=== PATIENT | female | born 1995 | race Caucasian/White ===

== ENCOUNTER 2020-10-27 10:12 | Emergency (ER) | payer OTHER, SELFPAY ==
--- NOTE | ~2020-10-27 | XR_ITS ---
EXAMINATION: XR knee LT 3V EXAM DATE: 10/27/2020 10:34 INDICATION: Fall 3 weeks ago 1st toe/left knee pain. Initial encounter. TECHNIQUE: Three projections of the left knee. There is no prior study for comparison. FINDINGS: No evidence osteochondral defect or joint body in the left knee joint. No joint effusion. There are no acute fractures or dislocations identified. There is no subcutaneous gas. The soft ti ssue is unremarkable. There are no radiopaque foreign bodies. IMPRESSION: Unremarkable left knee exam. Reviewed, dictated and finalized at location A. NT ENGINEER
--- NOTE | ~2020-10-27 | XR_ITS ---
EXAMINATION: XR foot LT min 3V EXAM DATE: 10/27/2020 10:34 INDICATION: Fall 3 weeks ago left great toe pain/1st metatarsal. Initial encounter. TECHNIQUE: Left foot dorsoplantar, lateral and oblique projections obtained and reviewed. There is n o prior study for comparison. FINDINGS: Left metatarsal bones unremarkable. There are no acute fractures or dislocations identifi ed. There is no subcutaneous gas. The soft tissue is unremarkable. There are no radiopaque foreig n bodies. IMPRESSION: No acute osseous findings. Reviewed, dictated and finalized at location A. ASTRUCTURE TECH IMPRESSION: No acute osseous findings.
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
[2020-10-27 10:21] VITALS: BP 147/85; PULSE 121; RESP 20; TEMP 36.3; O2SAT 100
== END 2020-10-27 10:59 | disposition home or self-care (01) ==
PROVIDERS: Emergency Provider Nurse Practitioner; PCP Family Medicine
DX: S99.922A Unspecified injury of left foot, initial encounter (principal); W10.9XXA Fall (on) (from) unspecified stairs and steps, initial encounter; M25.562 Pain in left knee
CPT/HCPCS: 73562; 73630; 99214; G0463

== ENCOUNTER → 2022-06-19 10:52 | Outpatient (CLI) | payer OTHER, SELFPAY ==
--- NOTE | ~2022-06-19 | US_ITS ---
EXAMINATION: US OB /maternal detail DATE: 06/19/2022 11:37 INDICATION: Second trimester anatomic survey TECHNIQUE: Real-time ultrasound of the pelvis was performed. COMPARISON: None. FINDINGS: There is a single living fetus in vertex presentation. The placenta is anterior and 8.6 cm from the i nternal cervical os. The cervical length is 3.2 cm. heart rate is 162 beats per minute (bpm). cardiac activity and movement are noted. The amniotic fluid index is subjectively normal. A 5 mm choroid plexus cyst is noted. The following anatomy was identified as normal: 4 chamber heart 3 vessel cord cord insertion kidneys urinary bladder stomach spine diaphragm ventricles cisterna magna cerebellum The following biometric data were obtained: Biparietal diameter (BPD): 4.5 cm; head circumference (HC): 16.4 cm; abdominal circumference (AC): 13 .4 cm; femur length (FL): 2.8 cm. These measurements are concordant. Estimated weight is 252 g +/- 37 g, which correlates with the 22nd percentile when 11/12/2022 is used as estimated date of delivery. As single measurements, these parameters are each equal to the following estimated gestational ages w ith ranges of +/- 2 standard deviations: BPD: 19 weeks 4 days ( 17 weeks 6 days - 21 weeks 3 days). HC: 19 weeks 1 days ( 17 weeks 5 days - 20 weeks 4 days). AC: 18 weeks 5 days ( 16 weeks 5 days - 20 weeks 6 days). FL: 18 weeks 3 days ( 16 weeks 4 days - 20 weeks 2 days). estimated gestational age based solely on measurements from this exam is 19 weeks 0 days +/- 1 weeks 2 days. IMPRESSION: 1. Single living fetus in vertex presentation. 2. Estimated weight is 252 g +/- 37 g, which correlates with the 22nd percentile when 11/12/2022 is used as estimated date of delivery. Reviewed, dictated and finalized at location B. IMPRESSION: 1. Single living fetus in vertex presentation. 2. Estimated weight is 252 g +/- 37 g, which correlates with the 22nd per centile when 11/12/2022 is used as estimated date of delivery.
== END ==
PROVIDERS: PCP Family Medicine; Visit Provider Advanced Practice Midwife
DX: Z34.92 Encounter for supervision of normal pregnancy, unspecified, second trimester (principal); Z3A.19 19 weeks gestation of pregnancy
CPT/HCPCS: 76805

== ENCOUNTER 2022-10-22 08:24 | Outpatient (CLI) | payer BC, SELFPAY ==
[2022-10-22 08:45] VITALS: BP 138/96; PULSE 103
[2022-10-22 09:00] VITALS: BP 141/88; PULSE 88
[2022-10-22 09:02] LABS: Basophils Percent Auto 0.4 % (0.2-1.2); Eosinophils Absolute Auto 0.3 K/mm3 (0-0.3); Eosinophils Percent Auto 3.7 % (0-4.4); Hematocrit 36.3 % (37.0-47.0); Hemoglobin 12.5 g/dL (12.0-15.0); Immature Granulocyte Absolute 0.04 K/mm3 (0.00-0.031); Immature Granulocyte Percent A 0.5 % (0-0.5); Lymphocytes Absolute Auto 2.06 K/mm3 (0.9-3.2); Lymphocytes Percent Auto 24.3 % (18.3-44.2); Mean Corpuscular HGB Conc 34.4 g/dl (32-36); Mean Corpuscular Hemoglobin 31.8 pg (26-34); Mean Corpuscular Volume 92.4 fl (80-100); Mean Platelet Volume 9.7 fl (7.4-10.4); Monocytes Absolute Auto 0.7 K/mm3 (0.1-0.6); Monocytes Percent Auto 8.6 % (2.6-8.5); Neutrophils Absolute Auto 5.3 K/mm3 (1.3-6.7); Neutrophils Percent Auto 62.5 % (45.5-73.1); Platelet Count Result 254 k/mm3 (150-375); Red Blood Count 3.93 M/mm3 (4.2-5.4); Red Cell Distribution Width 13.8 % (11.5-14.5); White Blood Count 8.5 K/mm3 (4.5-10.0)
[2022-10-22 09:15] LABS: Alanine Aminotransferase 40 U/L (6-35); Albumin Level 3.4 g/dL (3.5-5.1); Alkaline Phosphatase 174 U/L (38-126); Anion Gap 8 mmol/L (8-16); Aspartate Amino Transferase 27 U/L (14-36); Bilirubin,Total 0.5 mg/dL (0.2-1.3); Blood Urea Nitrogen 4 mg/dL (7-17); Calcium 8.4 mg/dL (8.4-10.2); Carbon Dioxide 22 mmol/L (22-30); Chloride 107 mmol/L (98-107); Estimated Glomerular Filt Rate > 60; Glucose 87 mg/dL (65-110); Potassium 3.1 mmol/L (3.4-5.0); Sodium 137 mmol/L (137-145); Uric Acid 4.4 mg/dL (2.5-7.5)
[2022-10-22 09:39] VITALS: BP 140/85; PULSE 77
[2022-10-22 09:46] VITALS: BP 137/75; PULSE 77
[2022-10-22 09:46] LABS: Appearance Urine Cloudy (Clear); Bilirubin Urine Negative (Negative); Blood Urine Negative (Negative); Color Urine Yellow (Yellow); Glucose Urine UA Negative (Negative); Ketones Urine 1+ mg/dL (Negative); Leukocyte Esterase Ur 1+ LEU/UL (NEGATIVE); Nitrate Urine Negative (Negative); Protein Urine 2+ mg/dL (Negative); Urobilinogen Urine 0.2 mg/dL (<2.0)
[2022-10-22 09:56] LABS: Bacteria Urine 4+ /hpf; Mucus Urine Rare /lpf; Squamous Epithelial Cell Urine Many /hpf (Few)
[2022-10-22 10:01] VITALS: BP 138/79; PULSE 71
[2022-10-22 10:02] LABS: Creatinine Urine 173.9 mg/dL; Total Protein Urine Random 24 mg/dL; Ur Ttl Prot Creatinine Ratio 0.14 mg/mg (0-0.20)
[2022-10-22 10:07] LABS: Add Urine Microscopic? YES
[2022-10-22 10:16] VITALS: BP 135/81; PULSE 66
== END 2022-10-22 10:25 | disposition home or self-care (01) ==
LOC: ANHOBOP 08:27 → ANHOBPP 08:28
PROVIDERS: PCP Family Medicine; Visit Provider Obstetrics & Gynecology Gynecology
DX: O10.919 Unspecified pre-existing hypertension complicating pregnancy, unspecified trimester (principal); Z3A.00 Weeks of gestation of pregnancy not specified
CPT/HCPCS: 36415; 59025; 80053; 81001; 82570; 84156; 84550; 85025; 87086; 99199

== ENCOUNTER 2022-10-23 09:52 | Outpatient (CLI) | payer BC, SELFPAY ==
[2022-10-23 09:52] VITALS: BMI 36.0
[2022-10-23 10:28] LABS: Collection Time Urine 24 HOURS
[2022-10-23 10:39] LABS: Patient Weight 197 Lbs
[2022-10-23 10:40] LABS: Total Volume 24 Hour Urine 4000 ml
[2022-10-23 10:44] LABS: Total Protein Urine Random 20 mg/dL
[2022-10-23 11:15] LABS: Creatinine Clearance Urine 191.4 ml/min (75-125); Creatinine Urine 37.7 mg/dL
[2022-10-23 11:30] LABS: Specific Gravity Ur 1.015; Total Protein Urine 24 Hr 800 mg/24hr (28-141); Total Volume 24 Hour Urine 4000 ml
== END 2022-10-23 09:53 | disposition home or self-care (01) ==
LOC: ANHOBOP 10:00
PROVIDERS: PCP Family Medicine; Visit Provider Obstetrics & Gynecology Gynecology
DX: O26.899 Other specified pregnancy related conditions, unspecified trimester (principal); R03.0 Elevated blood-pressure reading, without diagnosis of hypertension
CPT/HCPCS: 81050; 82575; 84156

== ENCOUNTER 2022-10-25 15:42 | Inpatient (IN) | payer BC, SELFPAY ==
[2022-10-25] VITALS (18 sets, daily range): BP systolic 130–166; BP diastolic 64–100; PULSE 60–81; RESP 14–16; TEMP 36.4–36.9; BMI 35.9
[2022-10-25] MEDS: DINOPROSTONE 10 MG VAG INSERT VAGINAL (16:22)
[2022-10-25 16:29] LABS: Basophils Percent Auto 0.2 % (0.2-1.2); Eosinophils Absolute Auto 0.2 K/mm3 (0-0.3); Eosinophils Percent Auto 2.8 % (0-4.4); Hematocrit 37.1 % (37.0-47.0); Hemoglobin 12.8 g/dL (12.0-15.0); Immature Granulocyte Absolute 0.03 K/mm3 (0.00-0.031); Immature Granulocyte Percent A 0.4 % (0-0.5); Lymphocytes Absolute Auto 2.14 K/mm3 (0.9-3.2); Lymphocytes Percent Auto 25.2 % (18.3-44.2); Mean Corpuscular HGB Conc 34.5 g/dl (32-36); Mean Corpuscular Hemoglobin 31.4 pg (26-34); Mean Corpuscular Volume 91.2 fl (80-100); Mean Platelet Volume 9.7 fl (7.4-10.4); Monocytes Absolute Auto 0.9 K/mm3 (0.1-0.6); Monocytes Percent Auto 10.5 % (2.6-8.5); Neutrophils Absolute Auto 5.2 K/mm3 (1.3-6.7); Neutrophils Percent Auto 60.9 % (45.5-73.1); Platelet Count Result 264 k/mm3 (150-375); Red Blood Count 4.07 M/mm3 (4.2-5.4); Red Cell Distribution Width 13.7 % (11.5-14.5); White Blood Count 8.5 K/mm3 (4.5-10.0)
--- NOTE | 2022-10-25 16:34 | LDADM ---
This patient, Janeen Pearl, was admitted to Labor/Delivery/Recovery 108 on 10/25/22 at 15:42. Plans for labor, pain management and were discussed with patient. Patient/family oriented to hospital policies and general routines including ID bracelet, bed and alarms, visiting hours, pain management, procedures, bathroom and other care routines, personal items, smoking policy, room service/diet and guest tray routines, security routines, and visiting hours. Patient/Family are encouraged to report perceived risks to care and to ask questions if they do not understand what they are told or what they should do. See OBIX for further documentation.
[2022-10-25 16:38] LABS: Alanine Aminotransferase 23 U/L (6-35); Albumin Level 3.4 g/dL (3.5-5.1); Alkaline Phosphatase 162 U/L (38-126); Anion Gap 7 mmol/L (8-16); Aspartate Amino Transferase 22 U/L (14-36); Bilirubin,Total 0.6 mg/dL (0.2-1.3); Blood Urea Nitrogen 5 mg/dL (7-17); Calcium 8.9 mg/dL (8.4-10.2); Carbon Dioxide 23 mmol/L (22-30); Chloride 107 mmol/L (98-107); Estimated Glomerular Filt Rate > 60; Glucose 80 mg/dL (65-110); Potassium 3.2 mmol/L (3.4-5.0); Sodium 137 mmol/L (137-145); Uric Acid 4.1 mg/dL (2.5-7.5)
[2022-10-25] MEDS: ACETAMINOPHEN 500 MG TABLET 1000 MG PO (21:05)
[2022-10-26] VITALS (190 sets, daily range): BP systolic 88–172; BP diastolic 37–127; PULSE 51–293; RESP 15–18; TEMP 36.8–37.6; O2SAT 95–100
[2022-10-26] MEDS: LACTATED RINGERS 1,000 ML 125 ML IV CONT ×3 (05:35→20:34)
[2022-10-26] MEDS: OXYTOCIN 30 UNITS/NS 500 ML 30 UNITS/500 ML BAG 6 UNITS IV CONT (05:35)
[2022-10-26] MEDS: miSOPROStol 25 MCG TABLET PO (07:07)
--- NOTE | 2022-10-26 09:32 | WPDANESEPP ---
Anes - Eval Pre Procedure Procedure: labor epidural Date/Time: 10/26/22 09:32 Preop Diagnosis: labor pain Pre Op Diagnosis: Induction of Labor Patient Data Age: 26 Gender: F Height: 1.57 m Weight: 89 kg Last Vital Signs Temp 37.2 C 10/26/22 07:00 Pulse 86 10/26/22 09:07 Resp 18 10/26/22 03:49 BP 151/103 H 10/26/22 09:07 O2 Del Method Room Air 10/25/22 16:31 Allergies Allergy/AdvReac Type Severity Reaction Status Date / Time gluten Allergy Gastrointestinal Verified 10/12/22 12:31 Upset grass pollen Allergy Hives Verified 10/12/22 12:32 red meat AdvReac Gastrointestinal Uncoded 10/12/22 12:32 Upset Home Medications Medication Instructions Recorded Confirmed Type aspirin 81 mg tablet,delayed 81 mg PO DAILY 10/12/22 10/12/22 History release (Collette Low Dose Aspirin) cholecalciferol (vitamin D3) 125 125 mcg PO DAILY 10/12/22 10/25/22 History mcg (5,000 unit) tablet (Vitamin D3) prenat.vits,nel,eeg-ydpi-vhvue 1 tablet PO DAILY 10/12/22 10/12/22 History Laboratory Tests 10/25/22 10/25/22 10/25/22 16:14 16:14 16:14 WBC 8.5 K/mm3 K/mm3 (4.5-10.0) RBC 4.07 M/mm3 L M/mm3 (4.2-5.4) Hgb 12.8 g/dL g/dL (12.0-15.0) Hct 37.1 % % (37.0-47.0) MCV 91.2 fl fl (80-100) MCH 31.4 pg pg (26-34) MCHC 34.5 g/dl g/dl (32-36) RDW 13.7 % % (11.5-14.5) Plt Count 264 k/mm3 k/mm3 (150-375) MPV 9.7 fl fl (7.4-10.4) Immature Gran % (Auto) 0.4 % % (0-0.5) Neut % (Auto) 60.9 % % (45.5-73.1) Lymph % (Auto) 25.2 % % (18.3-44.2) [place] % (Auto) 10.5 % H % (2.6-8.5) Eos % (Auto) 2.8 % % (0-4.4) Baso % (Auto) 0.2 % % (0.2-1.2) Lymph # (Auto) 2.14 K/mm3 K/mm3 (0.9-3.2) [place] # (Auto) 0.9 K/mm3 H K/mm3 (0.1-0.6) Eos # (Auto) 0.2 K/mm3 K/mm3 (0-0.3) Baso # (Auto) 0.0 K/mm3 K/mm3 (0.0-0.1) Abs Immat Gran (auto) 0.03 K/mm3 K/mm3 (0.00-0.031) Absolute Neuts (auto) 5.2 K/mm3 K/mm3 (1.3-6.7) Absolute Nucleated RBC 0.0 K/mm3 K/mm3 (0.0-0.012) Nucleated RBC % 0.0 % % (0.0-0.2) Sodium Potassium Chloride Carbon Dioxide Anion Gap BUN Creatinine Estim Creat Clear Calc Estimated GFR Glucose Uric Acid Calcium Total Bilirubin AST ALT Alkaline Phosphatase Total Protein Albumin RPR Pending Blood Type O Positive Antibody Screen Negative 10/25/22 10/25/22 16:14 16:15 WBC RBC Hgb Hct MCV MCH MCHC RDW Plt Count MPV Immature Gran % (Auto) Neut % (Auto) Lymph % (Auto) [place] % (Auto) Eos % (Auto) Baso % (Auto) Lymph # (Auto) [place] # (Auto) Eos # (Auto) Baso # (Auto) Abs Immat Gran (auto) Absolute Neuts (auto) Absolute Nucleated RBC Nucleated RBC % Sodium 137 mmol/L mmol/L (137-145) Potassium 3.2 mmol/L L mmol/L (3.4-5.0) Chloride 107 mmol/L mmol/L (98-107) Carbon Dioxide 23 mmol/L mmol/L (22-30) Anion Gap 7 mmol/L L mmol/L (8-16) BUN 5 mg/dL L mg/dL (7-17) Creatinine 0.60 mg/dL L mg/dL (0.7-1.0) Estim Creat Clear Calc Not Reportable Estimated GFR > 60 (59 - ) Glucose 80 mg/dL mg/dL (65-110) Uric Acid 4.1 mg/dL mg/dL Cancelled (2.5-7.5) Calcium 8.9 mg/dL mg/dL (8.4-10.2) Total Bilirubin 0.6 mg/dL mg/dL (0.2-1.3) AST 22 U/L U/L (14-36)
[2022-10-26] MEDS: NIFEdipine 30 MG TAB.ER.24 PO (11:35)
--- NOTE | 2022-10-26 11:52 | PM.OBPNLAB ---
Pain Control Date/time seen: 10/26/22 11:52 Pain control: tolerating well Pelvic Exam Dilation (cm): 1 Effacement (%): 25 station: -3 Amniotic membrane status: Intact Comments: head palpated and applied to cervix. Contractions Monitor mode: External Contraction pattern: Irregular Assessment and Plan Assessment: induction ongoing Comments: RN spoke with Dr. Morocho about plan of care. MD requests for CNM to attempt ROM. CNM to bedside. Discussed plan of care an option for amniotomy. Discussed risks, benefits, and expectations of breaking water. Patient is agreeable. Amniotomy performed and there was a small return of clear amniotic fluid. Small amount of bloody show present. Patient tolerated procedure well. Dr. Morocho updated on AROM.
[2022-10-26] MEDS: fentaNYL CITRATE INJ (*CRX) 100 MCG/2 ML VIAL 50 MCG IV PUSH (13:38)
[2022-10-26] MEDS: fentaNYL CITRATE INJ (*CRX) 100 MCG/2 ML VIAL IV PUSH ×3 (14:52→17:07)
[2022-10-26] MEDS: SODIUM CHLORIDE 0.9% IV 300 ML 600 ML I-UTERINE (19:30)
--- NOTE | 2022-10-26 23:33 | PM.OBPRVD ---
OB - Delivery Note Procedure Delivery date: 10/26/22 Procedure: Events: Preeclampsia w/o severe features Induction method: AROM, Per Pitocin Protocol and Per Cervidil Protocol Delivery monitor: External FHT and Internal Uterine Route of delivery: Laceration Description: Perineal - 2nd Degree Delivery repair: vicryl (3-0) Specimen: Yes (placenta) Quantitative Blood Loss (ml): 100 Anesthesia type: Epidural Disposition: Floor [place] Baby Date of : 10/26/22 Weeks of gestation at delivery: 37 gender: Male presentation: vertex position: Right Occiput Anterior Placenta delivery description: Spontaneous Cord Vessel Description: 3 Vessels score one minute: 8 score five minutes: 9
--- NOTE | 2022-10-26 23:35 | P.DS_ITS ---
DS: Admitting Diagnosis Discharge Date 10/28/22 Admitting Diagnosis IUP 37 2/7 wks with preeclampsia for [facility] DS: Discharge Diagnosis Discharge Diagnosis (1) Preeclampsia: Code(s): O14.90 - Unspecified pre-eclampsia, unspecified trimester Status: Acute (2) 37 weeks gestation of : Code(s): Z3A.37 - 37 weeks gestation of Status: Acute (3) (normal spontaneous vaginal delivery): Code(s): O80 - Encounter for full-term uncomplicated delivery Status: Acute OB - DS: Summary OB Procedures : NST, PIH Mgmt and Ultrasound OB Procedures Intrapartum: Spontaneous Vag Delivery OB Procedures: : None Peripartum Data Infant Delivery Method: Natural Vaginal Laceration Description: Perineal - 2nd Degree complications: none Status at Discharge Functional status at discharge: independent ambulation Overall status at discharge: patient is progressing back to baseline Time Spent with Patient Time attestation: Total time spent providing and/or coordinating discharge services: DS: Data Data Completed and Pending Pending studies at discharge: Pending at discharge 10/26/22 23:23 Surgical [PTH] Routine Discharge Plan Discharge Attending physician on discharge: Zulma Morocho Discharging Clinician: Zulma Morocho Anticipated Discharge Date/Time: 10/28/22 23:36 Patient Disposition: Home, Self-Care Activity: may shower and pelvic rest Diet: regular Patient Instructions: Antibiotic Form Stand Alone Forms: General Discharge Information Follow-up/Referrals: Zulma Morocho MD [Physician] - 1 Week (and 6 wk) Discharge Medications: New nifedipine [Procardia XL] 30 mg Tablet Extended Release 24hr 30 mg PO Q12HR Qty: 60 0RF Continued cholecalciferol (vitamin D3) [Vitamin D3] 125 mcg (5,000 unit) Tablet 125 mcg PO DAILY Discontinued aspirin [Collette Low Dose Aspirin] 81 mg Tablet,Delayed Release (Dr/Ec) 81 mg PO DAILY #2 Tablet 1 tablet PO DAILY Date of admission: 10/25/22 15:42 Primary Care Provider: Radha,Stefanie Wills Admitting Provider: Zulma Morocho Attending physician on admission: Zulma Morocho Condition: Stable
[2022-10-26] MEDS: OXYTOCIN 30 UNITS/NS 500 ML 30 UNITS/500 ML BAG 125 UNITS IV CONT (23:50)
[2022-10-27] VITALS (15 sets, daily range): BP systolic 116–154; BP diastolic 73–101; PULSE 85–135; RESP 16–18; TEMP 36.7–36.8; O2SAT 99–100
[2022-10-27] MEDS: IBUPROFEN 600 MG TABLET PO ×3 (01:05→16:00)
[2022-10-27] MEDS: WITCH HAZEL 40 PADS 1 PAD TOPICAL (01:06)
[2022-10-27] MEDS: BENZOCAINE 20% AER SPR (*SP) 56 GM CAN 1 SPRAY TOPICAL (01:06)
[2022-10-27] MEDS: NIFEdipine 30 MG TAB.ER.24 PO ×3 (02:31→21:34)
[2022-10-27 07:05] LABS: Hematocrit 36.6 % (37.0-47.0); Hemoglobin 12.5 g/dL (12.0-15.0)
[2022-10-27] MEDS: DOCUSATE SODIUM 100 MG CAPSULE PO ×2 (08:00→16:00)
[2022-10-27] MEDS: MULTIVIT/MIN/PREN/FOL AC/IRON TABLET 1 TAB PO (08:00)
--- NOTE | 2022-10-27 08:43 | P.PNOB_ITS ---
OB - PN: Subj Subjective Date/time seen: 10/27/22 08:43 Patient comments: no complaints, pain well controlled and other (no PIH sx) [place] baby status: doing well OB - PN: Obj Data Labs 10/27/22 05:13 10/25/22 16:14 Labs: Laboratory Results - last 24 hr 10/27/22 05:13 Hgb 12.5 Hct 36.6 L OB - PN A/P Assessment and Plan (1) Preeclampsia: Code(s): O14.90 - Unspecified pre-eclampsia, unspecified trimester Status: Acute Assessment and Plan: BP's remain elevated. Continue Proc xl 30 mg BID. Continue observation. Plan day: 1 Plan: routine care Time Spent With Patient Time: Total time spent is greater than 50% in coordination of care (as documented) at patient's floor/unit and/or counseling patient: Exam : Bimanual exam- vagina & uterus: other (Uterus firm, nt @U)
--- NOTE | 2022-10-27 12:48 | WPDANLDPN2 ---
Anes-Prog Note L&D Date/Time: 10/27/22 12:48 Neuro status: Neuro function grossly intact. Cardiovascular status: normal Respiratory status: normal Airway patency: baseline Mental status: baseline Post-Op hydration status: normal Vital Signs: Last Vital Signs Temp 36.7 C 10/27/22 08:00 Pulse 85 10/27/22 08:00 Resp 16 10/27/22 08:00 BP 142/97 H 10/27/22 08:00 Pulse Ox 100 10/27/22 08:00 O2 Del Method Room Air 10/27/22 08:00 Pain score (VAS): 10/15 I/O: Intake & Output 10/26/22 10/27/22 10/27/22 23:59 07:59 15:59 Intake Total 2000 200 Output Total 250 898 Balance 1750 -929 Post-procedural complaints: none Patient feedback: Patient satisfied with anesthetic care.
[2022-10-27] MEDS: ACETAMINOPHEN 325 MG TABLET 650 MG PO (13:14)
[2022-10-28] MEDS: IBUPROFEN 600 MG TABLET PO (04:55)
[2022-10-28 07:55] VITALS: BP 123/74; PULSE 95; RESP 16; TEMP 37.3; O2SAT 99
[2022-10-28] MEDS: NIFEdipine 30 MG TAB.ER.24 PO (09:48)
[2022-10-28] MEDS: ACETAMINOPHEN 325 MG TABLET 650 MG PO (09:48)
[2022-10-28] MEDS: DOCUSATE SODIUM 100 MG CAPSULE PO (09:49)
[2022-10-28 10:51] LABS: Rapid Plasma Reagin Non-Reactive (NonReactive)
--- NOTE | 2022-10-28 11:38 | P.PNOB_ITS ---
OB - PN: Subj Subjective Date/time seen: 10/28/22 11:38 Patient comments: no complaints, pain well controlled and other ( no preeclampsia symptoms) [place] baby status: doing well and bottle feeding well OB - PN: Obj Data Labs 10/27/22 05:13 10/25/22 16:14 Labs: Laboratory Results - last 24 hr 10/25/22 16:14 RPR Non-reactive OB - PN A/P Assessment and Plan (1) Preeclampsia: Code(s): O14.90 - Unspecified pre-eclampsia, unspecified trimester Status: Acute Assessment and Plan: blood pressures are stable on Procardia XL 30 twice daily patient will check pressures at home and call for abnormal readings 1 week following up for blood pressure check in the office Plan day: 2 Plan: routine care, discharge home and other ( plans Liletta intrauterine device) Time Spent With Patient Time: Total time spent is greater than 50% in coordination of care (as documented) at patient's floor/unit and/or counseling patient: Exam : Bimanual exam- vagina & uterus: other (Uterus firm, nt @U)
--- NOTE | 2022-10-28 20:40 | PC.NURSE ---
1000 Patient viewed the discharge video Mother & Baby Care, The First Two Weeks . Patient was given the opportunity and encouraged to ask questions. Patient verbalized understanding of information shared and has been given the mother/baby guide for home reference.
[2022-10-29 10:13] VITALS: BP 134/89; PULSE 82; RESP 18; TEMP 36.8; O2SAT 100
== END 2022-10-28 16:52 | disposition home or self-care (01) | DRG 807 ==
LOC: ANHLDR 10-26 23:37 → ANHOB2 10-27 01:41
PROVIDERS: Admitting Provider Obstetrics & Gynecology Gynecology; PCP Family Medicine; Visit Provider Obstetrics & Gynecology Gynecology
DX: O14.04 Mild to moderate pre-eclampsia, complicating childbirth (principal); Z37.0 Single live birth; Z3A.37 37 weeks gestation of pregnancy; O70.1 Second degree perineal laceration during delivery; O69.3XX0 Labor and delivery complicated by short cord, not applicable or unspecified; O36.8330 Maternal care for abnormalities of the fetal heart rate or rhythm, third trimester, not applicable or unspecified; O13.4 Gestational [pregnancy-induced] hypertension without significant proteinuria, complicating childbirth
CPT/HCPCS: 36415; 80053; 84550; 85014; 85018; 85025; 86592; 86850; 86900; 86901; 88307; A9270; J2590; J2795; J3010; J7030; J7120

== ENCOUNTER 2022-11-22 01:56 | Emergency (ER) | payer BC, SELFPAY ==
[2022-11-22 02:39] VITALS: BP 138/88; PULSE 116; RESP 16; TEMP 36.7; O2SAT 99
--- NOTE | 2022-11-22 03:51 | PC.NURSE ---
Pt significant other to the desk to ask how long the wait is. I explained to him that there is no way to estimate. Pt and SO think they will just go home and call the OB in the morning. Pt in no distress, A&Ox4 when leaving.
== END 2022-11-22 05:03 | disposition left against medical advice (07) ==
LOC: ANHED 04:03
PROVIDERS: PCP Family Medicine
DX: O90.89 Other complications of the puerperium, not elsewhere classified (principal); R10.9 Unspecified abdominal pain
CPT/HCPCS: 99199

== ENCOUNTER 2025-02-15 14:51 | Outpatient (CLI) | payer BC, SELFPAY ==
--- OUTSIDE RECORDS SUMMARY | 2025-02-15 15:02 | XMS_ITS | Data Portability ---
Author Organization [place] [facility], Main Office Address [address] [place] [address] Assessment No assessment recorded. Plan of Treatment Reminders Order Date Submit Date Provider Last Modified By Organization Details Last Modified Time Details Appointments None recorded. Lab None recorded. Referral None recorded. Procedures None recorded. Surgeries None recorded. Imaging None recorded. Medication Orders alprazolam 1 mg tablet 2023 024 [facility] #[id number], [address] [place], [place], [id number], 4 17:10:11 Vyvanse 20 mg capsule 2023 024 [facility][id number], [address] [place], [place], [id number], 4 17:06:09 alprazolam 1 mg tablet 2022 023 [email or web address] 11 [facility], [address] [place], [place], [id number], 4 16:58:45 dextroamphe tamine-amph etamine ER 25 mg 24hr capsule,ext end release 2022 023 [facility] #62162, [address] [place], [place], [id number], 3 12:34:19 alprazolam 1 mg tablet 2022 023 [facility] #37150, [address] [facility], [place], [place], [id number], 3 09:27:39 dextroamphe tamine-amph etamine ER 20 mg 24hr capsule,ext end release 2022 023 [email or web address] 3 [facility] #10766, [address], [place], [place], [id number], 3 11:55:10 Patient TargetsNo targets recorded. Patient InstructionsNo instructions recorded. Reason for Referral None Reported. Results Created Date Observation Date Name Description Value Unit Range Abnormal Flag Note LastModifiedBy Organization Detail LastModifiedTime 03/20/20 21 03/20/2021 SARS CoV 2 RNA (COVI D-19) , QL, senior corporate accountant-P CR, respi rator y speci men covid-19 RNA negati ve This test has been autho rized by the FDA under an Emerg ency Use Autho rizat ion (EUA) for use by autho rized labor atori es. Negat denise resul ts shoul d be treat ed as presu mptiv e and, if incon siste nt with clini nel signs and sympt oms neces harman for patie nt manag ement , shoul d be teste d with diffe rent autho rized or clear ed molec ular tests . Negat denise resul ts do not precl ude SARS- Co-V- 2 infec tion and shoul d not be used as the sole basis for patie nt manag ement decis ions. Negat denise resul ts shoul d be consi dered in the isabela xt of a patie nt's recen t expos ures, histo ry and the prese nce of clini nel signs and sympt oms consi stent with COVID -19. Pleas e gricel w the Fact Sheet s for healt h care provi ders and patie nts at the [facility] te: https ://gl oalpo intof care. abbot t/en/ produ ct-de tails /id-n ow-co vid-1 9.htm l Metho dolog y: Isoth ermal Nucle ic Acid Ampli ficat ion Not Available [facility] (Lab) [address] [place], [address], 03/20/2021 15:26:31 03/21/20 21 03/21/2021 pregn leonardo test, urine ur preg negati ve TESTI NG PERFO RMED BY SURGI NEL SERVI FADUMO PERSO NNEL. Not Available [facility] (Lab) [address] [place], [address], 03/21/2021 18:10:20 03/21/20 21 03/21/2021 pregn leonardo test, urine lot no. [id number] Not Available [facility] (Lab) [address] [place], [address], 03/21/2021 18:10:20 03/21/20 21 03/21/2021 pregn leonardo test, urine pos QC positi ve Not Available [facility] (Lab) [address] [place], [address], 03/21/2021 18:10:20 03/21/20 21 03/21/2021 pregn leonardo test, urine neg QC negati ve Not Available [facility] (Lab) [address] [place], [address], 03/21/2021 18:10:20 02/06/[address], maxil lofac ial, w/o contr ast [facility] [address] [place] [address] [phone] Patien t Name: JANEEN PEARL Access ion #: [id number] Sex: F : 1995 8 Locati on: RA2 Attend ing Physic jeanette: DARION COPELAND Orderi ng Physic jeanette: DARION COPELAND Exam Date: 02/06/20 21 11:06 AM Exam Name: CT MAXILL OFACIA L WO Admitt ing Diagno sis(es ): RADIOL OGY REPORT - FINAL EXAM: CT MAXILL OFACIA L WO HISTOR Y: chroni c sinusi tis COMPAR [place]: None. TECHNI QUE: Noncon trast axial CT images of the facial bones were perfor med. Smith l and sagitt al reform atted images were obtain ed. This CT exam was perfor med using one or more of the follow ing dose reduct ion techni ques: Automa michelle exposu re contro l, adjust ment of the mA and/or kV accord ing to patien t size, or use of iterat denise recons tructi on techni que. FINDIN GS: Osseou s: No eviden ce of a fractu re or destru ctive proces s. Page 1 of 2 [facility] Patien t Name: JANEEN PEARL Access ion #: [id number] Sex: F : 1995 8 Exam Date: 02/06/20 11:06 AM Exam Name: CT MAXILL OFACIA L WO Admitt ing Diagno sis(es ): Soft tissue s: Unrema rkable Sinuse s: The left maxill rihsi sinus ostiom eatal comple x is opacif ied. Minima l inflam matory change s are noted along the roof of the left maxill rishi sinus. Nasal septum : Modera te leftwa rd nasal septal deviat ion. Orbits : Unrema rkable Nasal turbin ates: Unrema rkable Tempor al mastoi d air cells: Symmet ricall y aerate d. Unrema rkable Dentit ion: IMPRES IOANA: 1. The left maxill rishi sinus ostiom eatal comple x is opacif ied, see above. Create d and electr onical ly signed by: Anselmo chicas MD Signed Date: 02/06/20 11:41 AM (CT) Dictat ed by: Anselmo chicas MD (CT) (CT) Page 2 of 2 [id number] [facility] (Imaging) [address] [place] [address], [address], 12/04/2022 01:04:02 06/19/20 22 06/19/2022 imagi ng/di agnos tic resul t No observ ation record ed. [id number] [facility] [address], [place], [address], 12/04/2022 01:04:02 06/19/20 22 06/19/2022 US, obste tric No observ ation record ed. [id number] [facility] [address], [place], [address], 12/04/2022 01:04:02 Result Notes None recorded. Problems Name Problem SNOMED Code Status Onset Date Resolution Date Notes Provider Name and Address Organization Details Recorded Time Attention deficit hyperactivity disorder, predominantly inattentive type 92676982 Active 2022 Stefanie Garcia MD [address], [facility] [address], [place], [address] , [facility] [employer] [facility] 3 09:25:02 Depressive disorder 87504182 Active 2020 Not Available [facility] 3 00:51:38 Sinusitis 30794926 Active 2020 Not Available [facility] 3 00:51:38 Attention deficit hyperactivity disorder 665527528 Active 2020 Not Available [facility] 3 00:51:38 Posttraumatic stress disorder 29569072 Active 2020 Not Available [facility] 3 00:51:38 Anxiety 39550625 Active 2020 Not Available [facility] 3 00:51:38 Problem Notes None recorded. Procedures Surgical History None recorded. Imaging Results Imaging Date Name Status LastModified by [facility]iz [facility] Details LastModified Time 02/05/2021 CT, maxillofacial, w/o contrast completed [id number] [facility] (Imaging) [address] [place], [address], 12/04/2022 01:04:02 06/19/2022 imaging/diagno stic result completed [id number] [facility] [address], [place], [address], 12/04/2022 01:04:02 06/19/2022 US, obstetric completed [id number] [facility] [address], [place], [address], 12/04/2022 01:04:02 Procedure Notes None recorded. Medical Equipment None Reported. Allergies No known drug allergies Medications Name Sig Start Date Stop Date Status Note LastModified by Organization Details LastModified Time nifedipine ER 30 mg tablet,exte nded release 24 hr TAKE 1 TABLET BY MOUTH EVERY 12 HOURS 02/14 completed Not Available Not Available Not Available trazodone 50 mg tablet TAKE 1/2 TO 1 TABLET BY MOUTH EVERY NIGHT AT BEDTIME NEEDED FOR INSOMNIA 02/14 completed Not Available Not Available Not Available azithromyci n 250 mg tablet TK 2 TS PO ON DAY 1 AND THEN 1 T DAILY FOR 4 DAYS 02/15 completed Not Available Not Available Not Available alprazolam 1 mg tablet TAKE 1 TABLET BY MOUTH EVERY DAY NEEDED FOR ANXIETY active Not Available Not Available No t Available dextroamphe tamine-amph etamine ER 20 mg 24hr capsule,ext end release TAKE 1 CAPSULE BY MOUTH EVERY DAY 04/25 completed Not Available Not Available Not Available hydrocodone 7.5 mg-acetamin ophen 325 mg tablet TAKE 1 TABLET BY MOUTH EVERY 4 HOURS NEEDED 02/14 completed Not Available Not Available Not Available azelastine 137 mcg (0.1 %) nasal spray [place] 2 sprays twice a day by intranasa l route. 02/14 completed Not Available Not Available Not Available ibuprofen 600 mg tablet TAKE 1 TABLET BY MOUTH FOUR TIMES DAILY NEEDED FOR PAIN 02/14 completed Not Available Not Available Not Available cefdinir 300 mg capsule TAKE ONE CAPSULE BY MOUTH TWICE DAILY 02/14 completed Not Available Not Available Not Available amoxicillin 875 mg-potassiu m clavulanate 125 mg tablet TK 1 T PO BID WITH THE MORNING AND RADHA MEAL FOR 7 DAYS active Not Available Not Available No t Available dextroamphe tamine-amph etamine ER 25 mg 24hr capsule,ext end release TAKE 1 CAPSULE BY MOUTH EVERY DAY active Not Available Not Available No t Available nitrofurant oin monohydrate /macrocryst als 100 mg capsule TAKE 1 CAPSULE BY MOUTH TWICE DAILY 02/14 completed Not Available Not Available Not Available Vyvanse 20 mg capsule Take 1 capsule every day by oral route for 30 days. 2023 active Not Available Not Available Not Avai lable ID NOW COVID-19 Test Kit TEST DIRECTED TODAY 02/14 completed Not Available Not Available Not Available Vitals Date Recorded Body height Body mass index (BMI) Body weight Body temperature Heart rate Oxygen saturation Oxygen saturation in Arterial blood by Pulse oximetry Systolic blood pressure Diastolic blood pressure Provider Name and Address Organization Details Last Updated DateTime 3 158.75 cm 29.9 kg/m2 56864.3 3 g 97.2 [degF] 68 /min 99 % 99 % 120 mm[Hg] 82 mm[Hg] [facility] [employer] [facility] 3 09:17:55 Date Recorded Body height Body mass index (BMI) Body weight Body temperature Heart rate Oxygen saturation Oxygen saturation in Arterial blood by Pulse oximetry Systolic blood pressure Diastolic blood pressure Provider Name and Address Organization Details Last Updated DateTime 3 158.75 cm 28.1 kg/m2 65597.4 1 g 96.8 [degF] 98 /min 96 % 96 % 126 mm[Hg] 80 mm[Hg] JASON Lopez [place] [employer] [facility] [employer] [facility] 3 12:20:59 Date Recorded Body height Body mass index (BMI) Body weight Body temperature Heart rate Oxygen saturation Oxygen saturation in Arterial blood by Pulse oximetry Systolic blood pressure Diastolic blood pressure Provider Name and Address Organization Details Last Updated DateTime 3 158.75 cm 24.7 kg/m2 15243.1 5 g 97.4 [degF] 58 /min 98 % 98 % 118 mm[Hg] 68 mm[Hg] Trupti hansen [facility] [employer] [facility] 3 14:51:24 Date Recorded Body height Body mass index (BMI) Body weight Body temperature Heart rate Oxygen saturation Oxygen saturation in Arterial blood by Pulse oximetry Systolic blood pressure Diastolic blood pressure Provider Name and Address Organization Details Last Updated DateTime 4 158.75 cm 21.4 kg/m2 16249.4 9 g 97.5 [degF] 73 /min 98 % 98 % 124 mm[Hg] 76 mm[Hg] Maxine Lau [place] [employer] 4 16:58:03 Date Recorded Body mass index (BMI) Body height Body temperature Body weight Provider Name and Address Organization Details Last Updated DateTime 02/15/2021 26.3 kg/m2 158.75 cm 97.2 [degF] 05123.49 g Not Available [employer] 12/04/2022 00:46:01 Social History Question Answer Notes LastModified by [employer] Details LastModified Time Tobacco Smoking Status Never Smoker JASON Lopez, [place] [employer] [facility] [email or web address] 02/14/2023 09:14:23 In The 14 Days Before Symptom Onset, Have You Had Close Contact With A Laboratory-confirm ed COVID-19 While That Case Was Ill? No Information n ot available 02/14/2023 In The 14 Days Before Symptom Onset, Have You Had Close Contact With A Person Who Is Under Investigation For COVID-19 While That Person Was Ill? No Information not available 02/14/2023 Sex: Unknown Functional Status Question Answer Note LastModified by [employer] Details LastModified Time What is your level of alcohol consumption? Occasional [id number] Information not available 12/04/2022 Mental Status None recorded. Family History Nothing Reported. Medical History Condition Response BLINDNESS N BLADDER PROBLEMS N MRSA N SLEEP APNEA N ALLERGIES/HAYFEVER N OTHER # 1 N INFECTIOUS DISEASE N HEART ARRHYTHMIA N LUNG DISEASE/DISORDER N INSOMNIA N RADIATION / CHEMOTHERAPY N COPD N HIGH CHOLESTEROL / HYPERLIPIDEMIA N Other # 2 N HYPERTHYROIDISM N BLOOD DISEASES N NEUROLOGICAL PROBLEMS N SURGERY N EDEMA N EAR OR HEARING PROBLEMS Y CHRONIC PAIN SYNDROME N HYPOTHYROIDISM N DEPRESSION (INCLUDING POST ) N BACK / NECK PROBLEMS Y HAVE YOU BEEN HOSPITALIZED OR SEEN IN [facility] IN THE PAST YEAR ? N STROKE/TIA N ULCERS N BENIGN PROSTATIC HYPERPLASIA N BREAST PROBLEMS N MYOCARDIAL INFARCTION N OBESITY N GERD/NAUSEA N HISTORY WITH COMPLICATIONS WITH ANESTHES IA ? N ANEURYSM N INPATIENT PSYCH CARE N CORONARY ARTERY DISEASE (CAD) N ARTHRITIS N USE OF BLOOD THINNERS N NO SIGNIFICANT PAST MEDICAL HISTORY N DIABETES, TYPE N GASTROINTESTINAL DISORDER N PARATHYROID DISEASE N ENT N SEASONAL ALLERGIES Y HEARTBURN / REFLUX N GASTROINTESTINAL BLEEDING N ASTHMA N HEPATITIS / LIVER DISEASE N PULMONARY DISEASE N SLEEP DISORDER N ALZHEIMER'S DISEASE N FATIGUE N HEADACHES/MIGRAINES Y SEIZURES/EPILEPSY N GI PROBLEMS N CHF N Low Testosterone N PACEMAKER N DIZZINESS Y HEART DISEASE/HEART PROBLEMS N AIDS/HIV N KIDNEY DISEASE N FRACTURES N LIVER DISEASE N HYPERTENSION N CANCER: SPECIFY N BLOOD TRANSFUSION N ANESTHESIA COMPLICATIONS N ANEMIA/BLOOD DISORDER N CHRONIC EAR INFECTIONS N ATRIAL FIBRILLATION N PULMONARY EMBOLISM N AUTOIMMUNE DISEASE N TUBERCULOSIS N GLAUCOMA N FOOT PROBLEM N Gynecological HistoryNo gynecological history recorded. Obstetrics History GPAL:G 0 P 0 0 0 0 Past Encounters Encounter ID Performer Location Encounter Start Date Encounter Closed Date Diagnosis/Indication Diagnosis SNOMED-CT Code Diagnosis ICD10 Code Diagnosis Note [id number] [facility] [place] [address] [place] [address] 12/20/2020 00:00:00 12/20/2020 16:14:19 [id number] Golden Aguirre MD [facility] [place] [address] [place] [address] 02/15/2021 00:00:00 02/15/2021 10:41:55 [id number] Stefanie Garcia MD [facility] Irvin edy [facility] [place] [address] 02/14/2023 09:11:05 02/14/2023 09:35:41 Adult health examination 652766788 Z00.00 Attention deficit hyperactivity disorder, predominantly inattentive type 81242763 F90.0 Anxiety 65841828 F41.9 [id number] Stefanie Garcia MD [facility] [address] [place] [address] 03/18/2023 12:14:35 03/18/2023 12:37:47 Attention deficit hyperactivity disorder, predominantly inattentive type 58650301 F90.0 will increase to 25 mg ER and f/u in 1 month [id number] Stefanie Garcia MD [facility] [address] llhar[address] [facility] [place] [address] 06/19/2023 14:37:00 06/19/2023 15:12:11 Attention deficit hyperactivity disorder, predominantly inattentive type 97697666 F90.0 Call for refills. Anxiety 01663874 F41.9 [id number] Stefanie Garcia MD [facility] [address] [facility] [place] [address] 11/03/2023 16:49:58 11/03/2023 17:13:47 Attention deficit hyperactivity disorder, predominantly inattentive type 12234064 F90.0 Anxiety 48571180 F41.9 Depressive disorder 8388 9007 F32.A Posttrauma tic stress disorder 20687533 F43.10 Health Concerns Section Related Observation LastModified by Organization Detai ls LastModified Time None Recorded Concern Status LastModified by Organization Details LastModified Time None Recorded Advance Directives Directive None Recorded Payers Encounter Date Sequence Insurance Name Policy Number Policy Stokes Covered Member ID Stokes Member ID Guarantor Name 02/14/2023 1 [place] [id number] Dandre Garcia Gevers [id number] Janeen Daniels Gevers 03/18/2023 1 [place] [id number] Dandre Garcia Gevers [id number] Janeen Daniels Gevers 06/19/2023 1 [place] [id number] Dandre Jose Gevers [id number] Janeen Daniels Gevers 11/03/2023 1 [place] [id number] Dandre Garcia Gevers [id number] Janeen Daniels Gevers Notes Date Note Type Note Provider Name and Address Organization Details Recorded Time 02/14/2023 text/html Here today for a physical. Wants to refill xanax and wants to start med for ADHD. Was taking adderall but it worked well for her. No complaints today. Has trouble focusing and can not complete tasks. Takes alprazolam as needed. Stefanie Garcia MD [address] [place] [address], [address], [employer] [facility] [email or web address] 02/14/2023 18:40:09 03/18/2023 text/html Here today for f /u of meds. The dextroamphetamine may need to increase the dosage. Has appetite suppression. Has problems sleeping. Stefanie Garcia MD [address] [facility] [address], [place], [address], [facility] [employer] [facility] [email or web address] 03/18/2023 21:26:06 06/19/2023 text/html Here today for m ed check. Doing ok. Is on dextroamphetamine and is doing well. The dosage is adequate. No complaints today. Is ok no refills needed. Pt has lost weight trying to lose making better choices and trying to be more active. Stefanie Garcia MD [address], [facility] [address], [place], [address], [employer] [email or web address] 06/19/2023 20:24:53 11/03/2023 text/html needs meds CHIDI Escobedo [address] [facility], [facility] [address], [place], [address], [employer] [facility] [email or web address] 2023 16:32:23 OBGyn Episode No OBEpisode recorded.
--- OUTSIDE RECORDS SUMMARY | 2025-02-15 15:02 | XMS_ITS | Clinical Summary ---
Author Organization [facility] [employer] Address [address] [facility] [place] [address] Care Team Providers Care Denture Packer Name Role Phone Stefanie Garcia MD Primary Care Provider [phone] Source Comments [facility] [employer],non-owned Affiliates and Associated Physician Practices is amultiple site organization consisting of ambulatory clinics and hospital sitesin [place], [place], [place] and [place]. This disclosure is being madepursuant to the Care Everywhere program and may not contain all information available regarding this patient. Last updated 18.[facility] [employer] Allergies No known active allergies Medications * Be aware that medications may not be up to date on this document. Alwaysverify current medications with the patient. levonorgestrel (MIRENA, 52 MG,) 20 MCG/24HR IUD 1 device by Intrauterine route as directed Active ALPRAZolam (XANAX PO) Active albuterol HFA (PROVENTIL;VENT KENNY;PROAIR) 108 (90 Base) MCG/ACT inhaler Inhale 2 puffs by mouth every 6 hours as needed 1 Inhaler 0 Active TRAZODONE HCL PO Active Social History Tobacco Use Types Packs/Day Years Used Date Smoking Tobacco: Never Smokeless Tobacco: Never Comments No Sex and Gender Information Value Date Recorded Sex Assigned at Not on file Legal Sex Female 5:36 AM [employer] Gender Identity Not on file Sexual Orientation Not on file Last Filed Vital Signs Vital Sign Reading Time Taken Comments Blood Pressure 122/70 09/02/2020 10:51 AM [employer] Pulse 48 09/02/2020 10:51 AM [employer] Temperature 36.7 C (98.1 F) 09/02/2020 10:51 AM [employer] Respiratory Rate 16 09/02/2020 10:51 AM [employer] Oxygen Saturation 99% 09/02/2020 10:51 AM [employer] Inhaled Oxygen Concentration - - Weight 63.5 kg (140 lb) 09/02/2020 10:51 AM [employer] Height 157.5 cm (5' 2 ) 09/02/2020 10:51 AM [employer] Body Mass Index 25.61 09/02/2020 10:51 AM [employer] Plan of Treatment Health Maintenance Due Date Last Done Comments HIV SCREENING 2008 HEPATITIS C SCREENING 11/06/2011 DTAP/TDAP/TD VACCINES (1 - Tdap) 2012 HEPATITIS B VACCINE (1 of 3 - 19+ 3-dose series) 2012 COVID-19 VACCINE (1 - 2023-2 5 season) 2024 DEPRESSION SCREENING 10/06/2024 INFLUENZA VACCINE (Season Ended) 2025 ZOSTER VACCINE (1 of 2) 2043 HIB VACCINE Aged Out No longer eligi ble based on patient's age to complete this topic HPV VACCINE Aged Out No longer eligi ble based on patient's age to complete this topic MENINGOCOCCAL (Group B) VACC INE SHARED DECISION-MAKING Aged Out No longer eligibl e based on patient's age to complete this topic MENINGOCOCCAL GROUPS A/C/Y/W VACCINE Aged Out No longer eligible b ased on patient's age to complete this topic PNEUMOCOCCAL VACCINE Aged Out No long er eligible based on patient's age to complete this topic Insurance [facility] Care Teams Denture Packer Relationship Specialty Start Date End Date Stefanie Garcia MD [address] [place] [address] [address] [place] [address] PCP - General 11/13/22
[2025-02-15 15:24] VITALS: BP 133/95; PULSE 118
--- NOTE | 2025-02-15 15:26 | OBADM ---
This patient, Janeen Pearl, admitted to the OB room OB Post 113 for observation. Patient/family oriented to hospital policies and general routines including ID bracelet, bed and alarms, visiting hours, pain management, procedures, bathroom and other care routines, personal items, smoking policy, room service/diet, and visiting hours. Patient/Family are encouraged to report perceived risks to care and to ask questions if they do not understand what they are told or what they should do.
[2025-02-15 15:27] VITALS: BMI 33.3
[2025-02-15 15:30] VITALS: BP 135/86; PULSE 102
[2025-02-15 15:45] VITALS: BP 105/79; PULSE 105
[2025-02-15 15:46] LABS: Basophils Percent Auto 0.2 % (0.2-1.2); Eosinophils Absolute Auto 0.4 K/mm3 (0-0.3); Eosinophils Percent Auto 3.5 % (0-4.4); Hematocrit 36.1 % (37.0-47.0); Immature Granulocyte Percent A 0.8 % (0-0.5); Lymphocytes Absolute Auto 2.65 K/mm3 (0.9-3.2); Lymphocytes Percent Auto 21.6 % (18.3-44.2); Mean Corpuscular HGB Conc 33.2 g/dl (32-36); Mean Corpuscular Hemoglobin 31.6 pg (26-34); Neutrophils Absolute Auto 8.1 K/mm3 (1.3-6.7); Neutrophils Percent Auto 65.9 % (45.5-73.1); Platelet Count Result 258 k/mm3 (150-375); White Blood Count 12.3 K/mm3 (4.5-10.0)
[2025-02-15 15:56] LABS: Add Urine Microscopic? YES; Alanine Aminotransferase 14 U/L (6-35); Alkaline Phosphatase 172 U/L (38-126); Anion Gap 9 mmol/L (4-12); Appearance Urine Cloudy (Clear); Aspartate Amino Transferase 26 U/L (14-36); Bacteria Urine 1+ /hpf; Bilirubin Urine Negative (Negative); Bilirubin,Total 0.6 mg/dL (0.2-1.3); Blood Urea Nitrogen 6 mg/dL (7-17); Blood Urine Trace (Negative); Calcium 9.1 mg/dL (8.4-10.2); Carbon Dioxide 21 mmol/L (22-30); Chloride 105 mmol/L (98-107); Color Urine Yellow (Yellow); Estimated CRCL calculation 110 ml/min; Estimated Glomerular Filt Rate > 60; Glucose 75 mg/dL (65-110); Glucose Urine UA Negative (Negative); Ketones Urine Trace mg/dL (Negative); Leukocyte Esterase Ur 1+ LEU/UL (Negative); Need Manual Microscopic Reviewed; Nitrate Urine Negative (Negative); Non Pathogenic Casts 0-2; Potassium 3.7 mmol/L (3.4-5.0); Protein Urine Trace mg/dL (Negative); Sodium 135 mmol/L (137-145); Specific Grav Ur 1.011 (1.001-1.035); Squamous Epithelial Cell Urine Occasional /hpf (Few); Uric Acid 3.9 mg/dL (2.5-7.5); Urobilinogen Urine 0.2 mg/dL (<2.0)
[2025-02-15 16:00] VITALS: BP 114/73; PULSE 94
[2025-02-15 16:16] LABS: Creatinine Urine 100.9 mg/dL; Total Protein Urine Random 15 mg/dL; Ur Ttl Prot Creatinine Ratio 0.15 mg/mg (0-0.20)
== END 2025-02-15 16:40 | disposition home or self-care (01) ==
LOC: ANHOBOP 14:59 → ANHOBPP 15:01
PROVIDERS: PCP Family Medicine; Visit Provider Obstetrics & Gynecology
DX: O13.9 Gestational [pregnancy-induced] hypertension without significant proteinuria, unspecified trimester (principal); Z3A.00 Weeks of gestation of pregnancy not specified
CPT/HCPCS: 36415; 80053; 81001; 82570; 84156; 84550; 85025; 87086; 99199

== ENCOUNTER 2025-02-21 16:56 | Inpatient (IN) | payer BC, SELFPAY ==
[2025-02-21] VITALS (15 sets, daily range): BP systolic 109–144; BP diastolic 48–87; PULSE 91–107; TEMP 36.6–36.8
--- OUTSIDE RECORDS SUMMARY | 2025-02-21 17:04 | XMS_ITS | Data Portability ---
Author Organization [facility], Main Office Address [address] [place] [address] Assessment No assessment recorded. Plan of Treatment Reminders Order Date Submit Date Provider Last Modified By Organization Details Last Modified Time Details Appointments None recorded. Lab None recorded. Referral None recorded. Procedures None recorded. Surgeries None recorded. Imaging None recorded. Medication Orders alprazolam 1 mg tablet 2023 024 [id number], [address] [place], [place], [id number], 4 17:10:11 Vyvanse 20 mg capsule 2023 024 [facility]08112, [address] [place], [place], [id number], 4 17:06:09 alprazolam 1 mg tablet 2022 023 [facility] [address] [place], [place], [id number], 4 16:58:45 dextroamphe tamine-amph etamine ER 25 mg 24hr capsule,ext end release 2022 023 [facility] #85409, [address] [place], [place], [id number], 3 12:34:19 alprazolam 1 mg tablet 2022 023 [facility][id number], [address] [facility], [place], [place], [id number], 3 09:27:39 dextroamphe tamine-amph etamine ER 20 mg 24hr capsule,ext end release 2022 023 relkhatib 3 [facility] #74578, [address], [place], [place], [id number], 3 11:55:10 Patient TargetsNo targets recorded. Patient InstructionsNo instructions recorded. Reason for Referral None Reported. Results Created Date Observation Date Name Description Value Unit Range Abnormal Flag Note LastModifiedBy Organization Detail LastModifiedTime 03/20/20 21 03/20/2021 SARS CoV 2 RNA (COVI D-19) , QL, taxicab starter-P CR, respi rator y speci men covid-19 [...] provi ders and patie nts at the [facility] te: https ://gl oalpo intof care. abbot t/en/ produ ct-de tails /id-n ow-co vid-1 9.htm l Metho dolog y: Isoth ermal Nucle ic Acid Ampli ficat ion Not Available [facility] (Lab) [address] [place], [address], 03/20/2021 15:26:31 03/21/20 21 03/21/2021 pregn leonardo test, urine ur preg negati ve TESTI NG PERFO RMED BY SURGI NEL SERVI FADUMO PERSO NNEL. Not Available [facility] (Lab) [address] [place], [address], 03/21/2021 18:10:20 03/21/20 21 03/21/2021 pregn leonardo test, urine lot no. [id number] Not Available [facility] (Lab) [address] [place], [address], 03/21/2021 18:10:20 03/21/20 21 03/21/2021 pregn leonardo test, urine pos QC positi ve Not Available [facility] (Lab) [address] [place], [address], 03/21/2021 18:10:20 03/21/20 21 03/21/2021 pregn leonardo test, urine neg QC negati ve Not Available [facility] (Lab) [address] [place], [address], 03/21/2021 18:10:20 02/06/[address], maxil lofac ial, w/o contr ast [facility] [address] [place] [address] Patien t Name: JANEEN PEARL Access ion #: [id number] Sex: F : 1995 8 Locati [...] ctive proces s. Page 1 of 2 [facility] Patien t Name: JANEEN PEARL Access ion #: [id number] Sex: F : 1995 8 Exam Date: 02/06/20 11:06 AM Exam Name: CT MAXILL OFACIA L WO Admitt ing Diagno sis(es ): Soft tissue s: Unrema rkable Sinuse s: The left maxill rishi sinus ostiom eatal [...] MD (CT) (CT) Page 2 of 2 [id number] [facility] (Imaging) [address] [place] [address], [address], 12/04/2022 01:04:02 06/19/20 22 06/19/2022 imagi ng/di agnos tic resul t No observ ation record ed. [id number] [facility] [address], [place], [address], 12/04/2022 01:04:02 06/19/20 22 06/19/2022 US, obste tric No observ ation record ed. [id number] [facility] [address], [place], [address], 12/04/2022 01:04:02 Result Notes None recorded. Problems Name Problem SNOMED Code Status Onset Date Resolution Date Notes Provider Name and Address Organization Details Recorded Time Attention deficit hyperactivity disorder, predominantly inattentive type 08225403 Active 2022 Stefanie Garcia MD [address], [facility] [address], [place], [address] , [facility] [employer] [facility] 3 09:25:02 Depressive disorder 11470617 Active 2020 Not Available [facility] 3 00:51:38 Sinusitis 97650809 Active 2020 Not Available [facility] 3 00:51:38 Attention deficit hyperactivity disorder 956836287 Active 2020 Not Available [facility] 3 00:51:38 Posttraumatic stress disorder 22282457 Active 2020 Not Available [facility] 3 00:51:38 Anxiety 84783423 Active 2020 Not Available [facility] 3 00:51:38 Problem Notes None recorded. Procedures Surgical History None recorded. Imaging Results Imaging Date Name Status LastModified by [facility] Details LastModified Time 02/05/2021 CT, maxillofacial, w/o contrast completed [id number] [facility] (Imaging) [address] [place], [address], 12/04/2022 01:04:02 06/19/2022 imaging/diagno stic result completed [id number] [facility] [address], [place], [address], 12/04/2022 01:04:02 06/19/2022 US, obstetric completed [id number] [facility] [address], [place], [address], 12/04/2022 01:04:02 Procedure Notes None recorded. Medical [...] azelastine 137 mcg (0.1 %) nasal spray Conner 2 sprays twice a day by intranasa [...] Updated DateTime 3 158.75 cm 29.9 kg/m2 14171.3 3 g 97.2 [degF] 68 /min 99 % 99 % 120 mm[Hg] 82 mm[Hg] Martha Jordan Frances [facility] [employer] [facility] 3 09:17:55 Date Recorded Body height Body mass index (BMI) Body weight Body temperature Heart rate Oxygen saturation Oxygen saturation in Arterial blood by Pulse oximetry Systolic blood pressure Diastolic blood pressure Provider Name and Address Organization Details Last Updated DateTime 3 158.75 cm 28.1 kg/m2 33794.4 1 g 96.8 [degF] 98 /min 96 % 96 % 126 mm[Hg] 80 mm[Hg] JASON Lopez [place] [employer] [facility] [employer] [facility] 3 12:20:59 Date Recorded Body height Body mass index (BMI) Body weight Body temperature Heart rate Oxygen saturation Oxygen saturation in Arterial blood by Pulse oximetry Systolic blood pressure Diastolic blood pressure Provider Name and Address Organization Details Last Updated DateTime 3 158.75 cm 24.7 kg/m2 75007.1 5 g 97.4 [degF] 58 /min 98 % 98 % 118 mm[Hg] 68 mm[Hg] Trupti hansen [facility] [employer] [facility] 3 14:51:24 Date Recorded Body height Body mass index (BMI) Body weight Body temperature Heart rate Oxygen saturation Oxygen saturation in Arterial blood by Pulse oximetry Systolic blood pressure Diastolic blood pressure Provider Name and Address Organization Details Last Updated DateTime 4 158.75 cm 21.4 kg/m2 24645.4 9 g 97.5 [degF] 73 /min 98 % 98 % 124 mm[Hg] 76 mm[Hg] Maxine Lau MA [place] [employer] 4 16:58:03 Date Recorded Body mass index (BMI) Body height Body temperature Body weight Provider Name and Address Organization Details Last Updated DateTime 02/15/2021 26.3 kg/m2 158.75 cm 97.2 [degF] 75505.49 g Not Available [employer] 12/04/2022 00:46:01 Social History Question Answer Notes LastModified by Mom[employer] Details LastModified Time Tobacco Smoking Status Never Smoker JASON Lopez, [place] [employer] [facility] 02/14/2023 09:14:23 In The 14 Days Before [...] Functional Status Question Answer Note LastModified by [employer] Details LastModified Time What is your level of alcohol consumption? Occasional [id number] Information not available 12/04/2022 Mental Status [...] HAVE YOU BEEN HOSPITALIZED OR SEEN IN [facility] IN THE PAST YEAR ? N [...] SNOMED-CT Code Diagnosis ICD10 Code Diagnosis Note 32937 [facility] ic_[place] [facility] [place] [address] [place] [address] 12/20/2020 00:00:00 12/20/2020 16:14:19 21187 Golden Aguirre MD [facility] [place] [address] [place] [address] 02/15/2021 00:00:00 02/15/2021 10:41:55 [id number] Stefanie Garcia MD [facility] Irvin edy [facility] [place] [address] 02/14/2023 09:11:05 02/14/2023 09:35:41 Adult health examination 681905484 Z00.00 Attention deficit hyperactivity disorder, predominantly inattentive type 09511455 F90.0 Anxiety 37483862 F41.9 [id number] Stefanie Garcia MD [facility] [address] [place] [address] 03/18/2023 12:14:35 03/18/2023 12:37:47 Attention deficit hyperactivity disorder, predominantly inattentive type 81699700 F90.0 will increase to 25 mg ER and f/u in 1 month [id number] Stefanie Garcia MD [facility] [address] [facility] [place] [address] 06/19/2023 14:37:00 06/19/2023 15:12:11 Attention deficit hyperactivity disorder, predominantly inattentive type 44247931 F90.0 Call for refills. Anxiety 37913041 F41.9 [id number] Stefanie Garcia MD [facility] [address] [facility] [place] [address] 11/03/2023 16:49:58 11/03/2023 17:13:47 Attention deficit hyperactivity disorder, predominantly inattentive type 82357199 F90.0 Anxiety 07731693 F41.9 Depressive disorder 7948 9007 F32.A Posttrauma tic stress disorder 65707279 F43.10 Health Concerns Section Related Observation LastModified by Organization Detai ls LastModified Time None Recorded Concern Status LastModified by Organization Details LastModified Time None Recorded Advance Directives Directive None Recorded Payers Encounter Date Sequence Insurance Name Policy Number Policy Stokes Covered Member ID Stokes Member ID Guarantor Name 02/14/2023 1 [place] [id number] Dandre Garcia Gevers [id number] Janeen Daniels Gevers 03/18/2023 1 [place] [id number] Dandre Garcia Gevers [id number] Janeen Daniels Gevers 06/19/2023 1 [place] [id number] Dandre Jose Gevers [id number] Janeen Daniels Gevers 11/03/2023 1 [place] [id number] Dandre Garcia Gevers [id number] Janeen Daniels Gevers Notes Date Note Type Note Provider Name and Address Organization Details Recorded Time 02/14/2023 text/html Here today for a physical. Wants to refill xanax and wants to start med for ADHD. Was taking adderall but it worked well for her. No complaints today. Has trouble focusing and can not complete tasks. Takes alprazolam as needed. Stefanie Garcia MD [address] [place] [address], [address], [employer] [facility] 02/14/2023 18:40:09 03/18/2023 text/html Here today for f /u of meds. The dextroamphetamine may need to increase the dosage. Has appetite suppression. Has problems sleeping. Stefanie Garcia MD [address] [facility] [address], [place], [address], [facility] [employer] [facility] 03/18/2023 21:26:06 06/19/2023 text/html Here today for m ed check. Doing ok. Is on dextroamphetamine and is doing well. The dosage is adequate. No complaints today. Is ok no refills needed. Pt has lost weight trying to lose making better choices and trying to be more active. Stefanie Garcia MD [address], [facility] [address], [place], [address], [employer] [facility] 06/19/2023 20:24:53 11/03/2023 text/html needs meds CHIDI Escobedo [address] [facility], [facility] [address], [place], [address], [employer] [facility] 2023 16:32:23 OBGyn Episode No OBEpisode recorded.
--- OUTSIDE RECORDS SUMMARY | 2025-02-21 17:04 | XMS_ITS | Clinical Summary ---
Author Organization [facility] Address [address] [place] [address] Care Team Providers Care Extraction Operator Name Role Phone Stefanie Garcia MD Primary Care Provider [phone] Source Comments [facility],non-owned Affiliates and Associated Physician Practices is amultiple site organization consisting of ambulatory clinics and hospital sitesin [place], [place], [place] and [place]. This disclosure is being madepursuant to the Care Everywhere program and may not contain all information available regarding this patient. Last updated 18.[facility] Allergies No known active allergies Medications * [...] on file Legal Sex Female 5:36 AM [employer] Gender Identity Not on file Sexual Orientation Not on file Last Filed Vital Signs Vital Sign Reading Time Taken Comments Blood Pressure 122/70 09/02/2020 10:51 AM [employer] Pulse 48 09/02/2020 10:51 AM [employer] Temperature 36.7 C (98.1 F) 09/02/2020 10:51 AM [employer] Respiratory Rate 16 09/02/2020 10:51 AM [employer] Oxygen Saturation 99% 09/02/2020 10:51 AM [employer] Inhaled Oxygen Concentration - - Weight 63.5 kg (140 lb) 09/02/2020 10:51 AM [employer] Height 157.5 cm (5' 2 ) 09/02/2020 10:51 AM [employer] Body Mass Index 25.61 09/02/2020 10:51 AM [employer] Plan of Treatment Health Maintenance Due Date [...] patient's age to complete this topic Insurance [facility] [place] [address] Care Teams Extraction Operator Relationship Specialty Start Date End Date Stefanie Garcia MD [address] [place] [address] [address] [place] [address] PCP - General 11/13/22
[2025-02-21 18:21] LABS: Basophils Percent Auto 0.4 % (0.2-1.2); Eosinophils Absolute Auto 0.4 K/mm3 (0-0.3); Eosinophils Percent Auto 3.9 % (0-4.4); Hematocrit 36.4 % (37.0-47.0); Hemoglobin 12.3 g/dL (12.0-15.0); Immature Granulocyte Absolute 0.11 K/mm3 (0.00-0.031); Immature Granulocyte Percent A 1.1 % (0-0.5); Lymphocytes Absolute Auto 1.73 K/mm3 (0.9-3.2); Lymphocytes Percent Auto 17.1 % (18.3-44.2); Mean Corpuscular HGB Conc 33.8 g/dl (32-36); Mean Corpuscular Hemoglobin 31.7 pg (26-34); Mean Corpuscular Volume 93.8 fl (80-100); Mean Platelet Volume 9.4 fl (7.4-10.4); Monocytes Absolute Auto 1.1 K/mm3 (0.1-0.6); Monocytes Percent Auto 11.2 % (2.6-8.5); Neutrophils Absolute Auto 6.7 K/mm3 (1.3-6.7); Neutrophils Percent Auto 66.3 % (45.5-73.1); Platelet Count Result 248 k/mm3 (150-375); Red Blood Count 3.88 M/mm3 (4.2-5.4); Red Cell Distribution Width 13.2 % (11.5-14.5); White Blood Count 10.1 K/mm3 (4.5-10.0)
--- NOTE | 2025-02-21 18:26 | LDADM ---
This patient, Janeen Pearl, was admitted to Labor/Delivery/Recovery 107 on 02/21/25 at 16:56. Plans for labor, pain management and were discussed with patient. Patient/family oriented to hospital policies and general routines including ID bracelet, bed and alarms, visiting hours, pain management, procedures, bathroom and other care routines, personal items, smoking policy, room service/diet and guest tray routines, security routines, and visiting hours. Patient/Family are encouraged to report perceived risks to care and to ask questions if they do not understand what they are told or what they should do. See OBIX for further documentation.
[2025-02-21] MEDS: DINOPROSTONE 10 MG VAG INSERT VAGINAL (18:40)
[2025-02-21 19:09] LABS: Syphilis IgG/IgM Antibody Negative (Negative)
[2025-02-21 19:11] LABS: HIV 1/2 Ab P24 Ag Result Negative (Negative)
[2025-02-21 19:40] LABS: Alanine Aminotransferase 15 U/L (6-35); Albumin Level 3.7 g/dL (3.5-5.1); Alkaline Phosphatase 149 U/L (38-126); Anion Gap 10 mmol/L (4-12); Aspartate Amino Transferase 28 U/L (14-36); Bilirubin,Total 0.5 mg/dL (0.2-1.3); Blood Urea Nitrogen 6 mg/dL (7-17); Calcium 9.2 mg/dL (8.4-10.2); Carbon Dioxide 21 mmol/L (22-30); Chloride 104 mmol/L (98-107); Estimated Glomerular Filt Rate > 60; Glucose 82 mg/dL (65-110); Potassium 3.2 mmol/L (3.4-5.0); Sodium 135 mmol/L (137-145); Uric Acid 4.1 mg/dL (2.5-7.5)
[2025-02-21] MEDS: ONDANSETRON INJ 4 MG/2 ML VIAL IV PUSH (19:41)
--- NOTE | 2025-02-21 20:34 | P.PNAN_ITS ---
Anes - Eval Pre Procedure Procedure: labor pain managment Date/Time: 02/21/25 20:34 Surgeon: Marco Harvey MD Preop Diagnosis: pain during labor Pre Op Diagnosis: IOL Patient Data Age: 29 Gender: F Height: Weight: Last Vital Signs Pulse 91 02/21/25 20:31 BP 126/64 02/21/25 20:31 O2 Del Method Room Air 02/21/25 18:26 Allergies Allergy/AdvReac Type Severity Reaction Status Date / Time grass pollen Allergy Hives Verified 02/08/25 13:43 red meat AdvReac Gastrointestinal Uncoded 02/08/25 13:43 Upset Home Medications ?Medication ?Instructions ?Recorded ?Confirmed ?Type aspirin 81 mg capsule 81 mg PO DAILY 02/08/25 02/08/25 History vit no.133-ferrous 1 tablet PO DAILY 02/08/25 02/08/25 History fumarate 28 mg-folic acid 800 mcg tablet () Laboratory Tests 02/21/25 02/21/25 17:47 17:57 WBC 10.1 H K/mm3 (4.5-10.0) RBC 3.88 L M/mm3 (4.2-5.4) Hgb 12.3 g/dL (12.0-15.0) Hct 36.4 L % (37.0-47.0) MCV 93.8 fl (80-100) MCH 31.7 pg (26-34) MCHC 33.8 g/dl (32-36) RDW 13.2 % (11.5-14.5) Plt Count 248 k/mm3 (150-375) MPV 9.4 fl (7.4-10.4) Immature Gran % (Auto) 1.1 H % (0-0.5) Neut % (Auto) 66.3 % (45.5-73.1) Lymph % (Auto) 17.1 L % (18.3-44.2) [place] % (Auto) 11.2 H % (2.6-8.5) Eos % (Auto) 3.9 % (0-4.4) Baso % (Auto) 0.4 % (0.2-1.2) Lymph # (Auto) 1.73 K/mm3 (0.9-3.2) [place] # (Auto) 1.1 H K/mm3 (0.1-0.6) Eos # (Auto) 0.4 H K/mm3 (0-0.3) Baso # (Auto) 0.0 K/mm3 (0.0-0.1) Abs Immat Gran (auto) 0.11 H K/mm3 (0.00-0.031) Absolute Neuts (auto) 6.7 K/mm3 (1.3-6.7) Absolute Nucleated RBC 0.000 K/mm3 (0.0-0.012) Nucleated RBC % 0.0 % (0.0-0.2) Sodium 135 L mmol/L (137-145) Potassium 3.2 L mmol/L (3.4-5.0) Chloride 104 mmol/L (98-107) Carbon Dioxide 21 L mmol/L (22-30) Anion Gap 10 mmol/L (4-12) BUN 6 L mg/dL (7-17) Creatinine 0.65 L mg/dL (0.7-1.0) Estim Creat Clear Calc Not Reportable Estimated GFR > 60 (59 - ) Glucose 82 mg/dL (65-110) Uric Acid 4.1 mg/dL (2.5-7.5) Calcium 9.2 mg/dL (8.4-10.2) Total Bilirubin 0.5 mg/dL (0.2-1.3) AST 28 U/L (14-36) ALT 15 U/L (6-35) Alkaline Phosphatase 149 H U/L (38-126) Total Protein 7.0 g/dL (6.3-8.2) Albumin 3.7 g/dL (3.5-5.1) Syphilis IgG/IgM Ab Negative (Negative) HIV 1&2 Ab/P24 Ag 4thGn Negative (Negative) Blood Type O Positive Antibody Screen Negative Patient hx anesthesia problems: none Family hx anesthesia problems: none Results Review: All pre-operative results and documents have been reviewed as part of the pre- operative evaluation. [facility] Past Medical History Medical History (Updated 02/21/25 @ 20:37 by Brenda Guevara CRNA) Anxiety Depression Anxiety Toxic shock syndrome (~2005) Family History Family History Sibling Autoimmune disease Anxiety Depression Sibling Anxiety Depression Sibling Depression Mother Bipolar 1 disorder Anxiety Manic depression Grandparent Diabetes mellitus Social History Social History Smoking status: Never smoker Alcohol intake: current Substance use: former Last use: quit as soon as found out was Do You Feel Safe in your Home?: Yes Lack of Transportation: No Lack of Food: Never True Current Housing: I Have Housing Concerned About Future Housing: No Difficulty Paying Gas/Electric Bills: No Difficulty Paying for Meds: No Currently Unemployed: No Education: Bachelor's Degree Difficulty w/ Childcare or Family Care: No Spiritual care concerns: No Exam Day of Procedure 02/21/25 20:34
[2025-02-21] MEDS: diphenhydrAMINE HCl CAP 25 MG CAPSULE 50 MG PO (20:58)
[2025-02-22] VITALS (139 sets, daily range): BP systolic 66–144; BP diastolic 44–121; PULSE 63–151; RESP 16–18; TEMP 36.4–37.5; O2SAT 78–100; BMI 33.1
[2025-02-22] MEDS: LACTATED RINGERS 1,000 ML 999 ML IV CONT ×2 (00:04→07:14)
[2025-02-22] MEDS: OXYTOCIN 30 UNITS/NS 500 ML 30 UNITS/500 ML BAG IV CONT (01:15)
--- NOTE | 2025-02-22 05:54 | P.HP_ITS ---
H&P: HPI History of Present Illness Date/Time: 02/22/25 05:54 Chief Complaint: Elevated blood pressure at term Narrative: 29-year-old 2 para 1 who is last menstrual period was 06/03/2024, EDC of 03/08/2025, confirmed by 9 week ultrasound presents at 38 weeks gestation for induction of labor secondary to elevated blood pressures. She has a history of PIH. She delivered last time at 37 weeks blood pressures have stayed consistently in high 80s to low 90s over the last couple visits. PIH labs were normal. She is negative for group B strep Review of Systems Review of Systems: CONSTITUTIONAL: Denies malaise, chills, sweats, or fever. CARDIOVASCULAR: Denies chest pain, palpitations, or edema. RESPIRATORY: Denies cough or dyspnea. SKIN: Denies abrasions, lacerations MUSCULOSKELETAL: Reports left foot pain, left knee pain NEUROLOGIC: Denies numbness, weakness All systems reviewed & are unremarkable except as noted in HPI and below PMFSH Past Medical History Medical History Anxiety Depression Anxiety Toxic shock syndrome (~2005) Family History Family History Sibling Autoimmune disease Anxiety Depression Sibling Anxiety Depression Sibling Depression Mother Bipolar 1 disorder Anxiety Manic depression Grandparent Diabetes mellitus Social History Social History Smoking status: Never smoker Alcohol intake: current Substance use: former Last use: quit as soon as found out was Do You Feel Safe in your Home?: Yes Lack of Transportation: No Lack of Food: Never True Current Housing: I Have Housing Concerned About Future Housing: No Difficulty Paying Gas/Electric Bills: No Difficulty Paying for Meds: No Currently Unemployed: No Education: Bachelor's Degree Difficulty w/ Childcare or Family Care: No Spiritual care concerns: No Meds Home Medications and Allergies Home Medications ?Medication ?Instructions ?Recorded ?Confirmed ?Type aspirin 81 mg capsule 81 mg PO DAILY 02/08/25 02/08/25 History vit no.133-ferrous 1 tablet PO DAILY 02/08/25 02/08/25 History fumarate 28 mg-folic acid 800 mcg tablet () Allergies Allergy/AdvReac Type Severity Reaction Status Date / Time grass pollen Allergy Hives Verified 02/08/25 13:43 red meat AdvReac Gastrointestinal Uncoded 02/08/25 13:43 Upset Vital Signs Vital Signs - 24 hr 02/21/25 18:26 02/21/25 18:26 02/21/25 18:31 Temperature Pulse Rate 98 107 H Blood Pressure 144/84 H 137/87 Pulse Oximetry Oxygen Delivery Room Air 02/21/25 18:46 02/21/25 19:00 02/21/25 19:01 Temperature 98 F Pulse Rate 94 100 Blood Pressure 130/74 116/74 Pulse Oximetry Oxygen Delivery 02/21/25 19:16 02/21/25 19:31 02/21/25 20:01 Temperature Pulse Rate 98 91 91 Blood Pressure 128/73 112/75 115/74 Pulse Oximetry Oxygen Delivery 02/21/25 20:16 02/21/25 20:31 02/21/25 20:46 Temperature Pulse Rate 103 H 91 91 Blood Pressure 121/79 126/64 129/71 Pulse Oximetry Oxygen Delivery 02/21/25 21:01 02/21/25 22:01 02/21/25 23:00 Temperature 98.2 F Pulse Rate 98 91 Blood Pressure 116/84 122/51 L Pulse Oximetry Oxygen Delivery 02/21/25 23:01 02/22/25 00:01 02/22/25 00:08 Temperature Pulse Rate 96 91 Blood Pressure 109/48 L 106/58 L Pulse Oximetry 98 Oxygen Delivery 02/22/25 00:13 02/22/25 00:15 02/22/25 00:16 Temperature Pulse Rate Blood Pressure Pulse Oximetry 97 96 98 Oxygen Delivery 02/22/25 00:21 02/22/25 00:23 02/22/25 00:28 Temperature Pulse Rate Blood Pressure Pulse Oximetry 96 98 98 Oxygen Delivery 02/22/25 00:31 02/22/25 00:36 02/22/25 00:41 Temperature Pulse Rate Blood Pressure Pulse Oximetry 96 99 100 Oxygen Delivery 02/22/25 00:46 02/22/25 00:51 02/22/25 00:56 Temperature Pulse Rate Blood Pressure Pulse Oximetry 99 98 98 Oxygen Delivery 02/22/25 01:01 02/22/25 01:06 02/22/25 01:14 Temperature Pulse Rate 102 H Blood Pressure 103/52 L Pulse Oximetry 98 98 100 Oxygen Delivery 02/22/25 01:19 02/22/25 01:24 02/22/25 01:29 Temperature Pulse Rate Blood Pressure Pulse Oximetry 99 99 99 Oxygen Delivery 02/22/25 01:34 02/22/25 01:39 02/22/25 01:44 Temperature Pulse Rate Blood Pressure Pulse Oximetry 99 99 98 Oxygen Delivery 02/22/25 01:49 02/22/25 01:53 02/22/25 01:58 Temperature Pulse Rate Blood Pressure Pulse Oximetry 100 98 99 Oxygen Delivery 02/22/25 02:01 02/22/25 02:02 02/22/25 02:03 Temperature Pulse Rate 84 Blood Pressure 106/52 L Pulse Oximetry 100 100 Oxygen Delivery 02/22/25 02:08 02/22/25 02:13 02/22/25 02:18 Temperature Pulse Rate Blood Pressure Pulse Oximetry 99 99 98 Oxygen Delivery 02/22/25 02:23 02/22/25 02:28 02/22/25 02:33 Temperature Pulse Rate Blood Pressure Pulse Oximetry 99 99 100 Oxygen Delivery 02/22/25 02:38 02/22/25 02:42 02/22/25 02:45 Temperature Pulse Rate Blood Pressure Pulse Oximetry 100 93 100 Oxygen Delivery 02/22/25 02:46 02/22/25 02:51 02/22/25 02:56 Temperature Pulse Rate Blood Pressure Pulse Oximetry 86 L 99 99 Oxygen Delivery 02/22/25 03:01 02/22/25 03:06 02/22/25 03:11 Temperature Pulse Rate 103 H Blood Pressure 112/65 Pulse Oximetry 99 99 99 Oxygen Delivery 02/22/25 03:16 02/22/25 03:21 02/22/25 03:26 Temperature Pulse Rate Blood Pressure Pulse Oximetry 99 99 99 Oxygen Delivery 02/22/25 03:31 02/22/25 03:36 02/22/25 03:41 Temperature Pulse Rate Blood Pressure Pulse Oximetry 98 98 98 Oxygen Delivery 02/22/25 03:46 02/22/25 03:51 02/22/25 03:56 Temperature Pulse Rate Blood Pressure Pulse Oximetry 98 97 97 Oxygen Delivery 02/22/25 04:01 02/22/25 05:01 Temperature Pulse Rate 88 86 Blood Pressure 101/53 L 105/53 L Pulse Oximetry 98 Oxygen Delivery Exam Const: General: cooperative, healthy appearing and comfortable Nutritional Appearance: average body habitus Orientation/consciousness: oriented to person, oriented to place and oriented to time HENMT: Head: normal to inspection Resp: Effort & Inspection: normal respiratory effort Cardio: Rate: regular rate Rhythm: regular rhythm Heart sounds: S1 normal heart sound present and S2 normal heart sound present GI: Inspection: normal to inspection (Soft gravid uterus) : Speculum Exam - Vagina: normal appearance of the vagina Speculum Exam - Cervix: normal appearance of the cervix (Cervix /50/2. AROM clear. FHT is reassuring) H&P: Results Labs Labs: Short CBC 02/21/25 Range/Units 17:57 WBC 10.1 H (4.5-10.0) K/mm3 Hgb 12.3 (12.0-15.0) g/dL Hct 36.4 L (37.0-47.0) % Plt Count 248 (150-375) k/mm3 BMP 02/21/25 17:47 Sodium 135 L Potassium 3.2 L Chloride 104 Carbon Dioxide 21 L BUN 6 L Creatinine 0.65 L Glucose 82 Calcium 9.2 Liver Function 02/21/25 Range/Units 17:47 Total Bilirubin 0.5 (0.2-1.3) mg/dL AST 28 (14-36) U/L ALT 15 (6-35) U/L Alkaline Phosphatase 149 H (38-126) U/L Albumin 3.7 (3.5-5.1) g/dL Assessment and Plan Assessment and plan (1) Term : Code(s): Z34.90 - Encounter for supervision of normal , unspecified, unspecified trimester Status: Acute (2) Gestational hypertension: Code(s): O13.9 - Gestational [-induced] hypertension without significant protein uria, unspecified trimester Status: Acute Plan Medical induction of labor. Spontaneous vaginal delivery expected. She is an epidural candidate
[2025-02-22] MEDS: fentaNYL CITRATE INJ (*CRX) 100 MCG/2 ML VIAL IV PUSH (06:31)
[2025-02-22] MEDS: SODIUM CHLORIDE 0.9% IV 300 ML 600 ML I-UTERINE (07:15)
--- NOTE | 2025-02-22 09:40 | P.PCNOB_ITS ---
OB - Vaginal Delivery Note Procedure Delivery date: 02/22/25 Events: Gestational Hypertension Induction method: Per Cervidil Protocol Delivery augmentation: Rupture of Membranes and Pitocin Delivery monitor: External FHT, External Uterine, Internal FHT and Internal Uterine Route of delivery: Episiotomy description: None Laceration Description: Perineal - 1st Degree Delivery repair: vicryl Specimen: No Quantitative Blood Loss (ml): 62 Anesthesia type: Epidural Disposition: Floor Complications: No immediate complications [place] Baby Date of : 02/22/25 Time of : 09:32 Gestational Age by Date: 38 gender: Male presentation: vertex position: Right Occiput Anterior Placenta delivery description: Spontaneous Cord Vessel Description: 3 Vessels, Nuchal Cord, Loose and Reduced score one minute: 8 score five minutes: 8 Narrative: Patient was admitted induction of labor on evening 5195 Cervidil was placed the baby did not tolerate that well and was low-dose Pitocin was undertaken artificial rupture membranes performed early in the to progress unremarkable 1st stage of labor to completely dilated pushed delivered spontaneously in the CHRISTEN position. Nuchal cord checked noted be loose x1 relieved around the occiput. Anterior posterior shoulder delivered spontaneously. Cord clamped x2 cut and passed off the table given Apgars of 8 at minute and 8 [id number] cord blood was drawn. Placenta delivered intact spontaneously. Twenty of Pitocin placed in IP at time from the uterus. After inspecting vagina 1st degree tear was noted and a [id number] with 0 Vicryl 3-0 Vicryl was placed. Blood loss was 62cc. All sponge, needle, instrument counts were correct. Mom and baby doing fine at the time of dictation
--- NOTE | 2025-02-22 09:42 | PM.DS ---
DS: Admitting Diagnosis Discharge Date 02/23/2025 Admitting Diagnosis Term /gestational hypertension DS: Discharge Diagnosis Discharge Diagnosis (1) Term : Code(s): Z34.90 - Encounter for supervision of normal , unspecified, unspecified trimester Status: Acute (2) Gestational hypertension: Code(s): O13.9 - Gestational [-induced] hypertension without significant proteinuria, unspecified trimester Status: Acute DS: Summary Hospital Course Reason for hospitalization: Patient was admitted for induction of labor secondary to elevated blood pressures and underwent spontaneous vaginal delivery on 02/22/2025 Hospital Course: Patient's hospital course unremarkable. She remained afebrile. Blood pressures remained stable. She was up, voiding without difficulty, eating regular diet, ambulating, and generally without complaints Time Spent with Patient Time attestation: Total time spent providing and/or coordinating discharge services: Exam Const: General: cooperative, healthy appearing and comfortable Nutritional Appearance: average body habitus Orientation/consciousness: oriented to person, oriented to place and oriented to time HENMT: Head: normal to inspection Resp: Effort & Inspection: normal respiratory effort Cardio: Rate: regular rate Rhythm: regular rhythm Heart sounds: S1 normal heart sound present and S2 normal heart sound present GI: Inspection: normal to inspection (Soft gravid uterus) : Speculum Exam - Vagina: normal appearance of the vagina Speculum Exam - Cervix: normal appearance of the cervix (Cervix 1/50/2. AROM clear. FHT is reassuring) DS: Data Data Completed and Pending Labs on day of discharge: Labs from last 24 hours 02/21/25 02/21/25 17:57 17:47 WBC 10.1 H RBC 3.88 L Hgb 12.3 Hct 36.4 L MCV 93.8 MCH 31.7 MCHC 33.8 RDW 13.2 Plt Count 248 MPV 9.4 Immature Gran % (Auto) 1.1 H Neut % (Auto) 66.3 Lymph % (Auto) 17.1 L [place] % (Auto) 11.2 H Eos % (Auto) 3.9 Baso % (Auto) 0.4 Lymph # (Auto) 1.73 [place] # (Auto) 1.1 H Eos # (Auto) 0.4 H Baso # (Auto) 0.0 Abs Immat Gran (auto) 0.11 H Absolute Neuts (auto) 6.7 Absolute Nucleated RBC 0.000 Nucleated RBC % 0.0 Sodium 135 L Potassium 3.2 L Chloride 104 Carbon Dioxide 21 L Anion Gap 10 BUN 6 L Creatinine 0.65 L Estim Creat Clear Calc Not Reportable Estimated GFR > 60 Glucose 82 Uric Acid 4.1 Calcium 9.2 Total Bilirubin 0.5 AST 28 ALT 15 Alkaline Phosphatase 149 H Total Protein 7.0 Albumin 3.7 Syphilis IgG/IgM Ab Negative HIV 1&2 Ab/P24 Ag 4thGn Negative Blood Type O Positive Antibody Screen Negative Discharge Plan Discharge Attending physician on discharge: Pepe Duncan Discharging Clinician: Pepe Duncan Patient Disposition: Home Activity: may shower, no straining and pelvic rest Diet: heart healthy Wound Care Instructions: follow printed instructions Patient Instructions: Antibiotic Form Patient Language: Occitan Stand Alone Forms: General Discharge Information Follow-up/Referrals: Pepe Duncan MD [Physician] - Discharge Medications: Continued 28-800 mg-mcg tablet 1 tablet PO DAILY aspirin 81 mg capsule 81 mg PO DAILY Date of admission: 02/21/25 16:56 Primary Care Provider: Radha,Stefanie Wills Admitting Provider: Pepe Duncan Attending physician on admission: Pepe Duncan Condition: Stable
[2025-02-22] MEDS: OXYTOCIN 30 UNITS/NS 500 ML 30 UNITS/500 ML BAG 125 UNITS IV CONT (09:53)
--- NOTE | 2025-02-22 13:30 | PC.NURSE ---
Pt assisted up to the bathroom. Previously patients right leg was numb from the epidural. Pt is able to stand and walk to the bathroom and the numbness is gone. Pt voided and was shown cong care. Pt verbalized understanding. Pt ambulated to the wheelchair and was transferred upstairs to room 280.
--- NOTE | 2025-02-22 13:37 | OBPPTRN ---
Patient transferred to post room #280 via wheelchair. Baby and Support person present. Oriented to unit, room, information board, rooming in, admission packet and security measures. Patient verbalizes understanding.
--- NOTE | 2025-02-22 17:14 | PC.NURSE ---
1445. Introductions were made, then consulted with patient to assess needs related to . Discussed with mother her plans to feed her and the experience so far. Encouraged mother to express any questions or concerns she has regarding feedings. Advised her to call out for a latch check or if she needs assistance waking or positioning baby. Reviewed the blue feeding worksheet for required output and feeding at least 8-12 times every 24 hours. Resources provided for inpatient and outpatient services with the feeding sheet, mom/baby guide, and name/number written on the communication board. Mother voiced understanding of information and will call if there is a request for assistance. Reported to the Primary RN. 1710. Observed mother latching infant to the left breast in football position. Infant was able to maintain an appropriate latch. Mother declines nipple pain/discomfort throughout feeding. Encouraged mother to keep awake and nursing at the breast for 15 minutes. Mother taught to listen for swallowing during feedings. Reviewed using the blue feeding sheet to record time and duration of feeding. Mother voiced understanding of the education shared, to call for assistance if the infant does not latch or if there is discomfort with . name/number on communication board. Reported to the Primary RN.?
[2025-02-22] MEDS: DOCUSATE SODIUM 100 MG CAPSULE PO (19:59)
[2025-02-23 00:20] VITALS: BP 128/68; PULSE 99; RESP 16; TEMP 37.1; O2SAT 96
[2025-02-23 04:01] LABS: Hematocrit 32.9 % (37.0-47.0); Hemoglobin 11.2 g/dL (12.0-15.0)
[2025-02-23] MEDS: ACETAMINOPHEN 325 MG TABLET 650 MG PO ×3 (04:41→21:27)
--- NOTE | 2025-02-23 06:29 | P.PNOB_ITS ---
OB - PN: Subj Subjective Date/time seen: 02/23/25 06:29 Patient comments: no complaints, pain well controlled and tolerating diet [place] baby status: doing well OB - PN: Obj Data Labs 02/23/25 03:50 02/21/25 17:47 Labs: Laboratory Results - last 24 hr 02/23/25 03:50 Hgb 11.2 L Hct 32.9 L OB - PN A/P Assessment and Plan (1) (normal spontaneous vaginal delivery): Code(s): O80 - Encounter for full-term uncomplicated delivery Status: Acute (2) Term : Code(s): Z34.90 - Encounter for supervision of normal , unspecified, unspecified trimester Status: Acute (3) Gestational hypertension: Code(s): O13.9 - Gestational [-induced] hypertension without significant proteinuria, unspecified trimester Status: Acute Time Spent With Patient Time: Total time spent is greater than 50% in coordination of care (as documented) at patient's floor/unit and/or counseling patient: Review of Systems 2 Review of Systems: CONSTITUTIONAL: Denies malaise, chills, sweats, or fever. CARDIOVASCULAR: Denies chest pain, palpitations, or edema. RESPIRATORY: Denies cough or dyspnea. SKIN: Denies abrasions, lacerations MUSCULOSKELETAL: Reports left foot pain, left knee pain NEUROLOGIC: Denies numbness, weakness All systems reviewed & are unremarkable except as noted in HPI and below Exam 2 Const: General: cooperative, healthy appearing and comfortable Nutritional Appearance: average body habitus Orientation/consciousness: oriented to person, oriented to place and oriented to time HENMT: Head: normal to inspection Resp: Effort & Inspection: normal respiratory effort Cardio: Rate: regular rate Rhythm: regular rhythm Heart sounds: S1 normal heart sound present and S2 normal heart sound present GI: Inspection: normal to inspection (Soft gravid uterus) : Speculum Exam - Vagina: normal appearance of the vagina Speculum Exam - Cervix: normal appearance of the cervix (Cervix 1/50/2. AROM clear. FHT is reassuring)
[2025-02-23 07:35] VITALS: BP 110/70; PULSE 78; RESP 18; TEMP 36.6; O2SAT 97
--- NOTE | 2025-02-23 09:05 | PC.NURSE ---
Request by branch credit counselor to assess due to weight loss of 5% at 12 hours old. His blood sugar was checked and was WNL. Mom states that baby has been sleepy but when he latches he does well. We tried to latch in football hold on the right breast. Baby gave a few attempts to open but he tends to push the nipple out with his first suck. We tried several times to get him to latch and he did maintain one latch for a short time with some sucking. Baby needed stimulation to suck. Mom states this is typical of how feedings have been going. Mom is able to express drops of colostrum and when the milk flows she continues to leak. Milk drops placed in baby's mouth. Mom is encouraged to continue placing drops on his lips. Mom states that her first baby was a poor feeder, even from the bottle. Baby was circumcised this morning and given a dose of Tylenol. Mom is encouraged to watch for early feeding cues at to call out if noted. RN updated.
--- NOTE | 2025-02-23 10:40 | PC.NURSE ---
1040: Mom attempting to breastfeed and requested assistance. Baby was placed in football hold on the left breast and mom expressed drops of colostrum to entice baby. Baby gave a few weak attempts to open his mouth and latch. He suckled a few times with each latch attempt but did not consistently maintain a latch. Discuss with mom that we can wait and attempt again in 30 minutes. She agrees with this plan and will call if baby is ready sooner. 1130: Returned to patient room and mom is finishing her lunch. She states that baby has been sleeping since the last attempt. We placed him in football again on the left breast. He kept his jaw clenched and wouldn't gape to latch. We attempted for several minutes without any success. Mom has colostrum dripping from her nipple and is placing drops on baby's lips. Mom is doing better with making a bite for baby. Offered a breast pump if mom is interested so we can supplement baby with any milk she gets. She agrees with this plan and wants to use a hospital pump. RN updated. 1200: Patient set up with a breast pump due to ineffective feeding. Mother was shown proper?sizing and placement?of flanges, pump settings, and cleaning of pump parts. Recommended 15 minutes of pumping both breasts simultaneously. Patient is aware that pumping should not hurt. She is encouraged to use the highest comfortable suction setting, gradually increasing the level as she pumps. Patient provided with a basin for cleaning parts between uses. Breast milk storage guidelines given. Discussed use of expressed breast milk with drops of milk placed in baby?s mouth with a clean finger, syringe feeding, bottle feeding, or mixing with a small volume of formula and feeding with a bottle. Primary RN updated. ?
[2025-02-23 11:53] VITALS: BP 109/68; PULSE 65; RESP 18; TEMP 36.2; O2SAT 97
--- NOTE | 2025-02-23 14:45 | PC.NURSE ---
Mother called out for feeding assistance. Baby is finally awake and eager to latch. She has him in football on the right breast. We adjusted positioning and then attempted to latch baby. He is a tongue sucker and it takes a few tries to elicit a wide gape. Mom was able to latch independently. The latch appeared a little shallow and we broke suction to try again. We did obtain a deeper latch and mom says she has some tenderness but that she mostly feels a strong tugging sensation. Baby was off and on the breast a few times but suckled fairly consistently for 10 minutes. He then let go of the breast independently and slept. Father present and supportive. Mom is encouraged to burp baby and offer the second breast if desired. Reviewed that if she desires to supplement with formula that doesn't mean baby can't still breastfeed at each feeding. Infant's weight and jaundice are borderline and supplementation may be indicated. Mom has a breast pump and could potentially give expressed milk after breastfeedings if desired. Mom is not opposed to formula but she does want to give a good try and worries if giving a bottle will interrupt . Mom is supported to make the choice that works best for her. RN updated.
[2025-02-23 15:15] VITALS: BP 118/79; PULSE 76; RESP 16; TEMP 36.6; O2SAT 97
--- NOTE | 2025-02-23 17:10 | PC.NURSE ---
Checked with patient to see if baby had breastfed again and she says he is finally awake and cluster feeding. She fed 2 more times independently. She was latching him at this time and we tried cross cradle hold. Baby latches eagerly and can maintain the latch for short sucking bursts, but loses the latch as soon as he stops sucking. Mom is encouraged to hold her breast throughout the feeding to support the latch and keep the 'bite' for baby. Supported mom to continue working with baby overnight and trying different feeding positions. RN updated.
[2025-02-23 19:00] VITALS: BP 112/71; PULSE 68; RESP 18; TEMP 36.8; O2SAT 99
[2025-02-24] VITALS: BP 120/83
[2025-02-24 05:19] VITALS: BP 102/65
[2025-02-24] MEDS: DOCUSATE SODIUM 100 MG CAPSULE PO (07:43)
[2025-02-24] MEDS: MULTIVIT/MIN/PREN/FOL AC/IRON TABLET 1 TAB PO (07:44)
[2025-02-24] MEDS: ACETAMINOPHEN 325 MG TABLET 650 MG PO (07:44)
[2025-02-24 08:00] VITALS: PULSE 67; RESP 16; O2SAT 97
[2025-02-24 08:15] VITALS: BP 110/78; PULSE 67; RESP 16; TEMP 36.7; O2SAT 97
--- NOTE | 2025-02-24 08:30 | PC.NURSE ---
Met with patient to discuss how feedings went last night. Mom states baby has been about the same as yesterday, sleepy and reluctant to latch. She continues to attempt at breast and then is supplementing with formula at every feeding due to weight loss of 9%. She hasn't pumped again and wanted assistance with putting her pump pieces back together. Showed patient how to connect all the pieces and tighten for good suction. She started pumping at this time and we reviewed the settings of the pump and suction adjustment. Mom is encouraged to continue pumping regularly, especially if baby does not breastfeed. Patient will be discharge to a no care bed today and baby will remain inpatient to monitor his weight. Encouraged patient to call out for feeding assistance at any time. Patient agrees. Name on white board.
[2025-02-24 13:05] VITALS: BP 118/68; PULSE 60; RESP 18; TEMP 36.4; O2SAT 98
[2025-02-24 15:50] VITALS: BP 120/72; PULSE 76; RESP 18; TEMP 36.6; O2SAT 100
[2025-02-24] MEDS: MEASLES,MUMPS,RUBELLA VACCINE 0.5 ML VIAL SUB-Q (17:34)
--- NOTE | 2025-02-24 18:50 | PC.NURSE ---
1300-Patient was given the opportunity to view the discharge video Mother & Baby Care, The First Two Weeks and to ask questions. Patient declined viewing the video and has been given the mother/baby guide for home reference.
[2025-02-25 08:31] VITALS: BP 140/88; PULSE 71; RESP 18; TEMP 36.5; O2SAT 100
== END 2025-02-24 18:45 | disposition home or self-care (01) | DRG 807 ==
LOC: ANHLDR 02-22 09:43 → ANHOB2 02-22 13:39
PROVIDERS: Admitting Provider Obstetrics & Gynecology; PCP Family Medicine; Visit Provider Obstetrics & Gynecology
DX: O13.4 Gestational [pregnancy-induced] hypertension without significant proteinuria, complicating childbirth (principal); Z37.0 Single live birth; O32.6XX0 Maternal care for compound presentation, not applicable or unspecified; O69.81X0 Labor and delivery complicated by cord around neck, without compression, not applicable or unspecified; O70.0 First degree perineal laceration during delivery; Z3A.38 38 weeks gestation of pregnancy
CPT/HCPCS: 36415; 80053; 84550; 85014; 85018; 85025; 86593; 86703; 86850; 86900; 86901; 90710; A9270; G0432; J2405; J2590; J2795; J3010; J7030; J7120

== ENCOUNTER 2025-05-08 19:02 | Observation (INO) | payer OTHER, SELFPAY ==
--- NOTE | ~2025-05-08 | US_ITS ---
US abdomen limited INDICATION: Acute cholecystitis. PROCEDURE: Realtime right upper abdominal ultrasound. COMPARISON: No prior studies for comparison. FINDINGS: The pancreas is normal without focal mass or pancreatic ductal dilation. Liver echotexture is normal without focal mass or intrahepatic biliary dilatation. There is normal directional flow i n the portal vein. Gallbladder contains multiple stones with gallbladder wall thickening. Common bile duct measures the 4.8 mm. No sonographic Grove's sign. IMPRESSION: 1: Cholelithiasis with gallbladder wall thickening. Consider cholecystitis in the appropriate clinica l setting. Reviewed, dictated and finalized at location A. IMPRESSION: 1: Cholelithiasis with gallbladder wall thickening. Consider cholecystitis in t he appropriate clinical setting.
--- NOTE | ~2025-05-08 | CT_ITS ---
EXAMINATION: CTA chest PE abdomen pel DATE: 05/09/2025 6:01 CDT INDICATION: Right-sided back and right upper quadrant pain. History of preeclampsia. 2 months postpar lisa. TECHNIQUE: Computed tomographic angiography (CTA) of the chest, abdomen, and pelvis was performed wit hout and with 100 mL Omnipaque-350 intravenous contrast. The dose-length product was 825.35 mGy-cm. M aximum intensity projection 3D-reconstructions of the aorta and other arteries were constructed by jose gabriel technologist on a separate workstation. COMPARISON: None. FINDINGS: CHEST CTA: Study technically adequate without evidence for pulmonary embolism. Heart size normal. No significant pleural or pericardial effusion. No thoracic lymphadenopathy. Gallbladder is present. No focal airsp fang consolidation. No pleural or pericardial effusion. No evidence for aortic aneurysm or dissection. No acute osseous abnormality. ABDOMEN AND PELVIS CTA: There are gallstones with gallbladder wall thickening and possible trace pericholecystic fluid. Fatty infiltration of the liver. The spleen, pancreas, adrenal glands and kidneys are unremarkable. Normal appendix. No free air or free fluid. IMPRESSION: 1. Findings compatible with acute cholecystitis. Clinically correlate. 2: No acute cardiopulmonary disease. No evidence for pulmonary embolism. Reviewed, dictated and finalized at location A.
--- NOTE | ~2025-05-08 | XR_ITS ---
Portable chest x-ray Comparison: 07/15/2005 Clinical History: Right-sided rib pain Findings: Lungs are clear, without focal consolidation or pleural effusion. Cardiomediastinal silho uette is stable. Bones and soft tissues are unremarkable. Impression: Normal chest. Reviewed, dictated and finalized at location . Impression: Normal chest.
--- OUTSIDE RECORDS SUMMARY | 2025-05-08 19:03 | XMS_ITS | Clinical Summary ---
Author Organization [facility] Address [address] [place] [address] Care Team Providers Care Comic Illustrator Name Role Phone Stefanie Garcia MD Primary Care Provider [phone] Source Comments [facility],non-owned Affiliates and Associated Physician Practices is amultiple site organization consisting of ambulatory clinics and hospital sitesin [place], [place], [place] and [place]. This disclosure is being madepursuant to the Care Everywhere program and may not contain all information available regarding this patient. Last updated 18.[facility] Allergies No known active allergies Medications * [...] on file Legal Sex Female 5:36 AM EMBROIDERY FINISHER Gender Identity Not on file Sexual Orientation Not on file Last Filed Vital Signs Vital Sign Reading Time Taken Comments Blood Pressure 122/70 09/02/2020 10:51 AM EMBROIDERY FINISHER Pulse 48 09/02/2020 10:51 AM EMBROIDERY FINISHER Temperature 36.7 C (98.1 F) 09/02/2020 10:51 AM EMBROIDERY FINISHER Respiratory Rate 16 09/02/2020 10:51 AM EMBROIDERY FINISHER Oxygen Saturation 99% 09/02/2020 10:51 AM EMBROIDERY FINISHER Inhaled Oxygen Concentration - - Weight 63.5 kg (140 lb) 09/02/2020 10:51 AM EMBROIDERY FINISHER Height 157.5 cm (5' 2) 09/02/2020 10:51 AM EMBROIDERY FINISHER Body Mass Index 25.61 09/02/2020 10:51 AM EMBROIDERY FINISHER Plan of Treatment Health Maintenance Due Date Last Done Comments HIV SCREENING 2008 HEPATITIS C SCREENING 11/06/2011 DTAP/TDAP/TD VACCINES (1 - Tdap) 2012 HEPATITIS B VACCINE (1 of 3 - 19+ 3-dose series) 2012 HPV VACCINE (1 - 3-dose SCDM series) 2020 COVID-19 VACCINE (1 - 2023-2 5 season) 2024 DEPRESSION SCREENING 10/06/2024 INFLUENZA VACCINE (#1) 2025 ZOSTER VACCINE (1 of 2) 2043 [...] patient's age to complete this topic Insurance [facility] [place] [id number] Care Teams Comic Illustrator Relationship Specialty Start Date End Date Stefanie Garcia MD [address] [place] [address] [address] [place] [address] PCP - General 11/13/22
[2025-05-08 19:06] VITALS: BP 165/107; PULSE 108; RESP 18; TEMP 36.1; O2SAT 100
--- OUTSIDE RECORDS SUMMARY | 2025-05-08 21:01 | XMS_ITS | Clinical Summary ---
Author Organization [facility] Address [address] [place] [address] Care Team Providers Care Treating Plant Pumper Name Role Phone Stefanie Garcia MD Primary Care Provider [phone] Source Comments [facility],non-owned Affiliates and Associated Physician Practices is amultiple site organization consisting of ambulatory clinics and hospital sitesin [place], [place], [place] and [place]. This disclosure is being madepursuant to the Care Everywhere program and may not contain all information available regarding this patient. Last updated 18.[facility] Allergies No known active allergies Medications * [...] on file Legal Sex Female 5:36 AM JAMB CUTTER Gender Identity Not on file Sexual Orientation Not on file Last Filed Vital Signs Vital Sign Reading Time Taken Comments Blood Pressure 122/70 09/02/2020 10:51 AM JAMB CUTTER Pulse 48 09/02/2020 10:51 AM JAMB CUTTER Temperature 36.7 C (98.1 F) 09/02/2020 10:51 AM JAMB CUTTER Respiratory Rate 16 09/02/2020 10:51 AM JAMB CUTTER Oxygen Saturation 99% 09/02/2020 10:51 AM JAMB CUTTER Inhaled Oxygen Concentration - - Weight 63.5 kg (140 lb) 09/02/2020 10:51 AM JAMB CUTTER Height 157.5 cm (5' 2) 09/02/2020 10:51 AM JAMB CUTTER Body Mass Index 25.61 09/02/2020 10:51 AM JAMB CUTTER Plan of Treatment Health Maintenance Due Date [...] age to complete this topic Insurance [facility] [place] Care Teams Treating Plant Pumper Relationship Specialty Start Date End Date Stefanie Garcia MD [address] [place] [address] [address] [place] [address] PCP - General 11/13/22
--- NOTE | 2025-05-08 21:22 | ED_ITS ---
HPI - Back Pain/Injury General Chief Complaint: Back Pain/Injury Stated Complaint: back pain Time Seen by Provider: 05/08/25 20:53 Source: patient and family Mode of arrival: ambulatory Limitations: no limitations History of Present Illness HPI Narrative: 29-year-old 002 female Patient presents with report of right-sided rib/back pain as well as right upper quadrant abdominal pain. In addition she is having some right lower quadrant abdominal pain and left shoulder pain. She reports that this started acutely approximately 2:00 p.m. while she was pumping. Patient had a vaginal delivery 2 months ago. Patient's 2 previous pregnancies were complicated by preeclampsia which required induction but were SVDs. Her OB Gyne is Dr. Leos. She denies any previous abdominal surgeries. She had nausea and 1 episode of nonbloody emesis. She states something similar has happened in the past but no previous diagnosis. She does not carry a diagnosis of hypertension independent of . Denies chest pain or shortness of breath. Prior to arrival she took Gas-X, Tylenol, and magnesium. She has been having subjective hot flashes and chills. Related Data Home Medications ?Medication ?Instructions ?Recorded ?Confirmed ?Last Taken ?Type vits no.133-ferrous 1 tablet PO DAILY 02/08/25 05/09/25 02/08/25 History fumarate 28 mg-folic acid 800 mcg tablet () Allergies Allergy/AdvReac Type Severity Reaction Status Date / Time grass pollen Allergy Hives Verified 05/08/25 19:09 red meat AdvReac Gastrointestinal Uncoded 02/08/25 13:43 Upset PMFSH Past Medical History Medical History (Updated 05/09/25 @ 02:16 by Trina Mcdaniels MD) Spontaneous vaginal delivery x2 Preeclampsia x2 Depression Anxiety Toxic shock syndrome (~2005) complicated by sepsis, while in middle school Family History Family History Sibling Autoimmune disease Anxiety Depression Sibling Anxiety Depression Sibling Depression Mother Bipolar 1 disorder Anxiety Manic depression Grandparent Diabetes mellitus Social History Social History Smoking status: Never smoker Alcohol intake: never Substance use: former Substance use type: marijuana Last use: quit as soon as found out was Do You Feel Safe in your Home?: Yes Lack of Transportation: No Lack of Food: Never True Current Housing: I Have Housing Concerned About Future Housing: No Difficulty Paying Gas/Electric Bills: No Difficulty Paying for Meds: No Currently Unemployed: No Education: Bachelor's Degree Difficulty w/ Childcare or Family Care: No Spiritual care concerns: No Exam 2 Narrative: GENERAL: Well-appearing, well-nourished, and in no acute distress. HEAD: Normocephalic, atraumatic. EYES: Non injected, non icteric ENT: Nares clear, no rhinorrhea or epistaxis. Gross auditory acuity intact. NECK: Supple. No meningismus. CHEST: Speaking in full sentences. No respiratory distress. Speaking in complete sentences without appreciable wheezes or crackles. HEART: Mildly tachycardic rate and rhythm. . ABDOMEN: Soft, nondistended. No rigidity or guarding. Not peritoneal. Grove sign equivocal. EXTREMITIES: Normal range of motion. No lower extremity edema. SKIN: Warm, dry, no rash. NEURO: No focal deficits. Alert and oriented. Answering questions. Following commands. Normal speech without aphasia or dysarthria. PSYCH: Normal mood and affect. Course Vital Signs Vital signs: Vital Signs Temperature 96.9 F L 05/08/25 19:06 Pulse Rate 108 H 05/08/25 19:06 Respiratory Rate 18 05/08/25 19:06 Blood Pressure 165/107 H 05/08/25 19:06 Pulse Oximetry 100 05/08/25 19:06 Oxygen Delivery Room Air 05/08/25 19:06 Temperature 96.8 F L 05/09/25 05:10 Pulse Rate 62 05/09/25 05:10 Respiratory Rate 18 05/09/25 05:10 Blood Pressure 125/71 05/09/25 05:10 Pulse Oximetry 99 05/09/25 05:10 Oxygen Delivery Room Air 05/09/25 04:05 MDM - Back Pain/Injury MDM Narrative Medical decision making narrative: Patient presents with right upper quadrant abdominal pain. She also has to some degree right lower quadrant abdominal pain and left shoulder pain. Symptoms started while she was pumping as she has been breast-feeding her 2-month-old. Last a like the 1st was complicated by preeclampsia requiring induction after 37 weeks. In the emergency department she is afebrile with vital signs notable for hypertension and tachycardia. Denies a diagnosis of hypertension outside of . CBC unremarkable except for mild abnormalities on the differential. Notably, platelets are normal. Patient is a dimer greater than 1. Will proceed with CTA imaging of PE as well as of the abdomen pelvis. BNP mildly elevated/abnormal however less than 300 thus less likely acute heart failure. Normal renal function. Markedly Elevated LFTs, more so than previously. test negative. Urinalysis concerning for urinary tract infection. Reflex culture is pending. Two previous urine cultures showed no growth. Will Give ceftriaxone. CT shows acute cholecystitis. Confirmed that patient is not on anticoagulation and that her last oral intake was at 5:00 p.m. on 05/08/2025 but it was mashed potatoes that she promptly threw up. SHe does ask about the ability to proceed with breast feeding. I noted that she was receiving antibiotics and pain medicine and that she may desire to pump and dump in the interim. She verifies understanding. She notes that she does have a lot of breast milk frozen in the freezer in the interim that can be used for her baby at home. Discussed patient with Dr. Burnham. He recommends NPO order replaced, obtain ultrasound in the morning, and repeat labs in the morning. Orders are placed for this. He accepted admission under himself. Differential Diagnosis Differential diagnosis: Likely other (preeclampsia, biliary etiology, HELLP, musculoskeletal; post cardiomyopathy; less likely new /ectopic; PE; PNA; pancreatitis) Lab Data Attestation: I reviewed the patient's lab results. 05/09/25 05:55 05/09/25 05:55 Labs: Lab Results 05/08/25 05/08/25 05/08/25 Range/Units 22:37 23:39 23:41 WBC 7.4 (4.5-10.0) K/mm3 RBC 4.69 (4.2-5.4) M/mm3 Hgb 14.1 (12.0-15.0) g/dL Hct 42.3 (37.0-47.0) % MCV 90.2 (80-100) fl MCH 30.1 (26-34) pg MCHC 33.3 (32-36) g/dl RDW 12.2 (11.5-14.5) % Plt Count 266 (150-375) k/mm3 MPV 9.4 (7.4-10.4) fl Immature Gran % (Auto) 0.1 (0-0.5) % Neut % (Auto) 56.7 (45.5-73.1) % Lymph % (Auto) 31.7 (18.3-44.2) % [place] % (Auto) 10.0 H (2.6-8.5) % Eos % (Auto) 1.4 (0-4.4) % Baso % (Auto) 0.1 L (0.2-1.2) % Lymph # (Auto) 2.34 (0.9-3.2) K/mm3 [place] # (Auto) 0.7 H (0.1-0.6) K/mm3 Eos # (Auto) 0.1 (0-0.3) K/mm3 Baso # (Auto) 0.0 (0.0-0.1) K/mm3 Abs Immat Gran (auto) 0.01 (0.00-0.031) K/mm3 Absolute Neuts (auto) 4.2 (1.3-6.7) K/mm3 Absolute Nucleated RBC 0.000 (0.0-0.012) K/mm3 Nucleated RBC % 0.0 (0.0-0.2) % PT 13.1 (11.1-14.7) Seconds INR 1.0 APTT 25.2 (22.3-36.8) Seconds D-Dimer 1.09 H (<0.48) ug/mL Sodium 141 (137-145) mmol/L Potassium 3.8 (3.4-5.0) mmol/L Chloride 108 H (98-107) mmol/L Carbon Dioxide 23 (22-30) mmol/L Anion Gap 10 (4-12) mmol/L BUN 11 D (7-17) mg/dL Creatinine 0.67 L (0.7-1.0) mg/dL Estim Creat Clear Calc 98 ml/min Estimated GFR > 60 (59 - ) Glucose 122 H (65-110) mg/dL Calcium 9.8 (8.4-10.2) mg/dL Magnesium 2.3 (1.6-2.3) mg/dL Total Bilirubin 1.1 (0.2-1.3) mg/dL AST 976 H (14-36) U/L ALT 485 H (6-35) U/L Alkaline Phosphatase 181 H (38-126) U/L NT-Pro-B Natriuret Pep 253 H (19.9-100) pg/mL Total Protein 8.2 (6.3-8.2) g/dL Albumin 4.4 (3.5-5.1) g/dL Lipase 110 (23-300) U/L Urine Color Yellow (Yellow) Urine Appearance Cloudy H (Clear) Urine pH 8.5 (5.0-9.0) Ur Specific [place] 1.023 (1.001-1.035) Urine Protein 1+ H (Negative) mg/dL Urine Glucose (UA) Negative (Negative) mg/dL Urine Ketones Negative (Negative) mg/dL Ur Blood (Man) Negative (Negative) Urine Nitrate Positive H (Negative) Urine Bilirubin Negative (Negative) Urine Urobilinogen 1.0 (<2.0) mg/dL Add Ur Microanalysis Reviewed Leukocyte Esterase Rfl 2+ H (Negative) HANS/UL Urine RBC 11-20 H (0-2) /hpf Urine WBC 51-100 H (0-3) /hpf Ur Squamous Epith Cells Few (Few) /hpf Urine Bacteria 4+ H /hpf Urine Casts 11-20 POC Urine HCG, Qual Negative (Negative) Imaging Data Radiologist's impression: CT Chest Stat Rad: No pulmonary contusion or pneumothorax. No acute fractures. CT Abd & Pelvis: Acute cholecystitis, consisting of gallbladder wall thickening and mild pericholecystic edema. Small gallstones. Surgical evaluation recommended. Discharge Plan Discharge Clinical Impression: Transaminitis, Abdominal pain, RUQ, UTI (urinary tract infection), Acute cholecystitis Patient Disposition: Still a Patient Condition: Stable Time of Disposition: 02:24
[2025-05-08 22:47] LABS: Hematocrit 42.3 % (37.0-47.0); Hemoglobin 14.1 g/dL (12.0-15.0); Immature Granulocyte Percent A 0.1 % (0-0.5); Lymphocytes Absolute Auto 2.34 K/mm3 (0.9-3.2); Mean Corpuscular HGB Conc 33.3 g/dl (32-36); Mean Corpuscular Hemoglobin 30.1 pg (26-34); Mean Corpuscular Volume 90.2 fl (80-100); Nucleated Red Blood Cells Absolute Auto 0.000 K/mm3 (0.0-0.012); Nucleated Red Blood Cells Perc 0.0 % (0.0-0.2); Platelet Count Result 266 k/mm3 (150-375); Red Blood Count 4.69 M/mm3 (4.2-5.4); White Blood Count 7.4 K/mm3 (4.5-10.0)
[2025-05-08 22:59] LABS: INR 1.0; Prothrombin Time 13.1 Seconds (11.1-14.7)
[2025-05-08 23:00] LABS: Partial Thromboplastin Time 25.2 Seconds (22.3-36.8)
[2025-05-08 23:01] LABS: Alanine Aminotransferase 485 U/L (6-35); Albumin Level 4.4 g/dL (3.5-5.1); Alkaline Phosphatase 181 U/L (38-126); Anion Gap 10 mmol/L (4-12); Bilirubin,Total 1.1 mg/dL (0.2-1.3); Blood Urea Nitrogen 11 mg/dL (7-17); Calcium 9.8 mg/dL (8.4-10.2); Carbon Dioxide 23 mmol/L (22-30); Chloride 108 mmol/L (98-107); Estimated CRCL calculation 98 ml/min; Estimated Glomerular Filt Rate > 60; Glucose 122 mg/dL (65-110); Lipase 110 U/L (23-300); Magnesium 2.3 mg/dL (1.6-2.3); Potassium 3.8 mmol/L (3.4-5.0); Sodium 141 mmol/L (137-145); Total Protein 8.2 g/dL (6.3-8.2)
[2025-05-08 23:09] LABS: NT Pro B Type Natriuretic Pept 253 pg/mL (19.9-100)
[2025-05-08 23:43] LABS: BEDSIDEPREGUCG Negative (Negative)
[2025-05-09] VITALS (10 sets, daily range): BP systolic 96–132; BP diastolic 47–89; PULSE 60–100; RESP 16–20; TEMP 35.7–36.2; O2SAT 97–100; BMI 30.6
[2025-05-09 00:20] LABS: Add Urine Microscopic? YES; Appearance Urine Cloudy (Clear); Glucose Urine UA Negative (Negative); Leukocyte Esterase Ur 2+ LEU/UL (Negative); Need Manual Microscopic Reviewed; Nitrate Urine Positive (Negative); Specific Grav Ur 1.023 (1.001-1.035)
[2025-05-09 00:25] LABS: Aspartate Amino Transferase 976 U/L (14-36)
[2025-05-09] MEDS: cefTRIAXone 1 GM in SODIUM CHLORIDE 0.9% IV 50 ML 100 ML IVPB (01:29)
[2025-05-09] MEDS: LACTATED RINGERS 1,000 ML 125 ML IV CONT ×2 (03:17→19:30)
--- NOTE | 2025-05-09 03:36 | ADMGEN ---
This patient, Janeen Pearl, was admitted to [facility] Surg Room 327-01. Patient/family oriented to hospital policies and general routines including ID bracelet, bed and alarms, visiting hours, pain management, procedures, bathroom and other care routines, personal items, smoking policy, room service/diet, and visiting hours. Information on how to activate the Rapid Response Team has been discussed. Patient/Family are encouraged to report perceived risks to care and to ask questions if they do not understand what they are told or what they should do.
[2025-05-09 06:20] LABS: Hematocrit 41.0 % (37.0-47.0); Hemoglobin 13.4 g/dL (12.0-15.0); Immature Granulocyte Percent A 0.2 % (0-0.5); Lymphocytes Absolute Auto 2.03 K/mm3 (0.9-3.2); Mean Corpuscular HGB Conc 32.7 g/dl (32-36); Mean Corpuscular Hemoglobin 30.5 pg (26-34); Mean Corpuscular Volume 93.4 fl (80-100); Nucleated Red Blood Cells Absolute Auto 0.000 K/mm3 (0.0-0.012); Nucleated Red Blood Cells Perc 0.0 % (0.0-0.2); Platelet Count Result 237 k/mm3 (150-375); Red Blood Count 4.39 M/mm3 (4.2-5.4); White Blood Count 6.5 K/mm3 (4.5-10.0)
[2025-05-09 06:40] LABS: Alanine Aminotransferase 567 U/L (6-35); Albumin Level 4.1 g/dL (3.5-5.1); Alkaline Phosphatase 195 U/L (38-126); Anion Gap 8 mmol/L (4-12); Bilirubin,Total 0.9 mg/dL (0.2-1.3); Blood Urea Nitrogen 8 mg/dL (7-17); Calcium 9.1 mg/dL (8.4-10.2); Carbon Dioxide 24 mmol/L (22-30); Chloride 108 mmol/L (98-107); Estimated CRCL calculation 104 ml/min; Estimated Glomerular Filt Rate > 60; Glucose 80 mg/dL (65-110); Potassium 3.7 mmol/L (3.4-5.0); Sodium 140 mmol/L (137-145); Total Protein 7.5 g/dL (6.3-8.2)
[2025-05-09 06:53] LABS: Aspartate Amino Transferase 746 U/L (14-36)
[2025-05-09] MEDS: MORPHINE SULFATE (*CRX) 2 MG/ML INJ IV PUSH (10:40)
[2025-05-09] MEDS: ONDANSETRON INJ 4 MG/2 ML VIAL IV PUSH (10:40)
--- NOTE | 2025-05-09 11:40 | P.HP_ITS ---
H&P: HPI History of Present Illness Date/Time: 05/09/25 11:40 Chief Complaint: Right upper quadrant abdominal pain Narrative: This is a 29-year-old who presented to the ED with complaints of right upper quadrant abdominal pain x 7 hours yesterday. She reports having a similar episode of pain about 2 weeks ago following a spicy meal. Her pain resolved through the night and she did not seek medical attention. Yesterday, she had an Greek sub sandwich for lunch and developed right upper quadrant pain around 2:00 p.m.. She describes the pain as starting in her mid back and radiating around to the right upper quadrant. She attempt to taking Gas-X and using a heating pad without any relief. Her pain persisted over the next few hours without any improvement and was more severe than her previous episode, therefore she came into the ED for evaluation. Labs showed a normal white blood cell count, total bilirubin 1.1, AST 976, ALT 485, alk-phos 181, and lipase normal. UA suggests possible UTI. Chest x-ray normal. CTA chest, abdomen, and pelvis showed findings compatible with acute cholecystitis. No PE or acute cardiopulmonary disease. Right upper quadrant abdominal ultrasound showed cholelithiasis with gallbladder wall thickening. She was given 1 dose of IV ceftriaxone for the UTI. Urine culture pending. She was admitted and is currently NPO with IV fluids. She is 8 weeks following a vaginal delivery. She was induced at 38 weeks gestation for elevated blood pressures with a personal history of preeclampsia. She denies any complications. Labs reviewed from February, which would be about 1 month prior to delivery, and her LFTs were essentially normal at that time. She denies any history of liver disease or hepatitis. No recent travel. Review of Systems Review of Systems: All systems reviewed & are unremarkable except as noted in HPI and below [facility] Past Medical History Medical History Spontaneous vaginal delivery x2 Preeclampsia x2 Depression Anxiety Toxic shock syndrome (~2005) complicated by sepsis, while in middle school Surgical History Surgical History No pertinent past surgical history Family History Family History Sibling Autoimmune disease Anxiety Depression Sibling Anxiety Depression Sibling Depression Mother Bipolar 1 disorder Anxiety Manic depression Grandparent Diabetes mellitus Social History Social History Smoking status: Never smoker Alcohol intake: never Substance use: former Substance use type: marijuana Last use: quit as soon as found out was Do You Feel Safe in your Home?: Yes Lack of Transportation: No Lack of Food: Never True Current Housing: I Have Housing Concerned About Future Housing: No Difficulty Paying Gas/Electric Bills: No Difficulty Paying for Meds: No Currently Unemployed: No Education: Bachelor's Degree Difficulty w/ Childcare or Family Care: No Spiritual care concerns: No Meds Home Medications and Allergies Home Medications ?Medication ?Instructions ?Recorded ?Confirmed ?Type vits no.133-ferrous 1 tablet PO DAILY 02/08/25 05/09/25 History fumarate 28 mg-folic acid 800 mcg tablet () Allergies Allergy/AdvReac Type Severity Reaction Status Date / Time grass pollen Allergy Hives Verified 05/08/25 19:09 red meat AdvReac Gastrointestinal Uncoded 02/08/25 13:43 Upset Vital Signs Vital Signs - 24 hr 05/08/25 19:06 05/09/25 00:57 05/09/25 02:47 Temperature 96.9 F L Pulse Rate 108 H 75 66 Respiratory Rate 18 16 16 Blood Pressure 165/107 H 132/81 131/81 Pulse Oximetry 100 98 99 Oxygen Delivery Room Air 05/09/25 03:00 05/09/25 03:41 05/09/25 04:05 Temperature 96.4 F L Pulse Rate 67 66 66 Respiratory Rate 20 16 16 Blood Pressure 129/89 131/81 Pulse Oximetry 99 99 99 Oxygen Delivery Room Air 05/09/25 05:10 Temperature 96.8 F L Pulse Rate 62 Respiratory Rate 18 Blood Pressure 125/71 Pulse Oximetry 99 Oxygen Delivery Exam Const: General: comfortable and no acute distress Nutritional Appearance: average body habitus Orientation/consciousness: patient oriented x3 HENMT: Head: normocephalic and atraumatic Ears: hearing grossly normal bilaterally Mouth: Yes moist mucous membranes Eyes: General: appearance normal, both eyes and all related structures Pupils: Equal, round and reactive pupils present Neck: Neck: normal visual inspection and full ROM Resp: Effort & Inspection: no respiratory distress Auscultation: clear to auscultation bilaterally Cardio: Rate: regular rate Rhythm: regular rhythm Peripheral pulses: Peripheral pulses 2+ throughout GI: Inspection: non-distended, no scars and striae GI Palp: Yes Soft to palpation, Yes Tenderness to palpation present (GI) (RUQ), No Guarding due to palpation present (GI), Yes No hepatosplenomegaly present and No Rebound tenderness present Percussion: Yes normal to percussion Auscultation: normal bowel sounds Rectal Exam: deferred Skin: General skin exam: normal color Neuro: General: moves all extremities and no focal motor deficits Speech: normal speech Motor exam (neuro): 5/5 motor strength present throughout Extrem: General: normal to inspection and no edema Psych: Mental Status: mental status grossly normal Attitude: cooperative Insight: Good insight present (Psych) Judgement: Good judgement present (Psych) H&P: Results Labs Labs: Short CBC 05/08/25 05/09/25 Range/Units 22:37 05:55 WBC 7.4 6.5 (4.5-10.0) K/mm3 Hgb 14.1 13.4 (12.0-15.0) g/dL Hct 42.3 41.0 (37.0-47.0) % Plt Count 266 237 (150-375) k/mm3 BMP 05/08/25 05/09/25 22:37 05:55 Sodium 141 140 Potassium 3.8 3.7 Chloride 108 H 108 H Carbon Dioxide 23 24 BUN 11 D 8 Creatinine 0.67 L 0.64 L Glucose 122 H 80 Calcium 9.8 9.1 Liver Function 05/08/25 05/09/25 Range/Units 22:37 05:55 Total Bilirubin 1.1 0.9 (0.2-1.3) mg/dL AST 976 H 746 H (14-36) U/L ALT 485 H 567 H (6-35) U/L Alkaline Phosphatase 181 H 195 H (38-126) U/L Albumin 4.4 4.1 (3.5-5.1) g/dL Urine 05/08/25 Range/Units 23:39 Urine Color Yellow (Yellow) Urine Appearance Cloudy H (Clear) Urine pH 8.5 (5.0-9.0) Ur Specific [place] 1.023 (1.001-1.035) Urine Protein 1+ H (Negative) mg/dL Urine Glucose (UA) Negative (Negative) mg/dL Imaging CT scan - abdomen: Radiologist's impression: ITS Impressions Chest X-Ray 05/09/25 05:52 Impression: Normal chest. Chest/Abdomen/Pelvis CTA 05/09/25 06:01 IMPRESSION: 1. Findings compatible with acute cholecystitis. Clinically correlate. 2: No acute cardiopulmonary disease. No evidence for pulmonary embolism. Abdomen Ultrasound 05/09/25 09:30 IMPRESSION: 1: Cholelithiasis with gallbladder wall thickening. Consider cholecystitis in the appropriate clinical setting. Assessment and Plan Assessment and plan (1) Acute cholecystitis: Code(s): K81.0 - Acute cholecystitis Status: Acute Assessment and Plan: * CT scan showed findings concerning for acute calculous cholecystitis. RUQ US this morning showed cholelithiasis with gallbladder wall thickening. She has been having RUQ pain x 1 day and she is still having pain this morning. We discussed treatment options in detail including both nonoperative management with lifestyle modifications versus surgical management. Given her persistent pain, it is likely she would fail conservative management. We would recommend a laparoscopic cholecystectomy, possible open, by Dr. Burnham that would be done under general anesthesia. Description of the procedure, risks, benefits, alternatives, and expected recovery were discussed with the patient in detail. We discussed the risks of bile leak and bile duct injury, liver/bowel injury, bleeding, and infection. Also discussed the possibility of having to convert to an open procedure if necessary. She understands and wishes to proceed with surgery. We will further investigate the elevation in her liver enzymes and plan timing of surgery depending on these results. (2) Transaminitis: Code(s): R74.01 - Elevation of levels of liver transaminase levels Status: Acute Assessment and Plan: * AST and ALT markedly elevated with AST 976 and ALT 567 on admission. Total bilirubin is normal. Her LFTs were normal in February during her , other than a mildly elevated alk phos. Cholecystitis could be playing a role in her transaminitis, but it seems fairly significant for just cholecystitis alone. Her recent delivery in the setting of hypertension/possible preeclampsia could play a role as well, but less concerning given recent normal labs. Will order a Hepatitis panel to rule out other causes for her transaminitis. (3) UTI (urinary tract infection): Code(s): N39.0 - Urinary tract infection, site not specified Status: Acute Assessment and Plan: * UA suggestive of UTI. She is asymptomatic, but in the period. Urine cultures pending. Patient given one dose of IV Ceftriaxone around 2 am in the ER. She will need to be discharged postoperatively on oral antibiotics to treat the UTI. Tailor antibiotics to culture results. (4) Mother currently breast-feeding: Code(s): Z39.1 - Encounter for care and examination of lactating mother Status: Acute Assessment and Plan: * Patient exclusively pumping. She is currently pumping and dumping following the IV contrast from the CT scan. Plan I have discussed the patient's case and plan of care with Dr. Burnham.
[2025-05-09 13:10] LABS: Hepatitis B Surface Antigen Negative (Negative)
[2025-05-09 13:16] LABS: HAV RESULT Negative (Negative); Hepatitis B Core IgM Result Negative (Negative)
[2025-05-10] VITALS (7 sets, daily range): BP systolic 108–156; BP diastolic 51–86; PULSE 48–92; RESP 12–20; TEMP 35.7–36.4; O2SAT 96–100
[2025-05-10] MEDS: cefTRIAXone 1 GM in SODIUM CHLORIDE 0.9% IV 50 ML 100 ML IVPB (00:09)
[2025-05-10] MEDS: LACTATED RINGERS 1,000 ML 125 ML IV CONT (03:35)
[2025-05-10 08:25] LABS: Hematocrit 38.3 % (37.0-47.0); Hemoglobin 13.0 g/dL (12.0-15.0); Immature Granulocyte Percent A 0.2 % (0-0.5); Lymphocytes Absolute Auto 2.05 K/mm3 (0.9-3.2); Mean Corpuscular HGB Conc 33.9 g/dl (32-36); Mean Corpuscular Hemoglobin 30.7 pg (26-34); Mean Corpuscular Volume 90.3 fl (80-100); Nucleated Red Blood Cells Absolute Auto 0.000 K/mm3 (0.0-0.012); Nucleated Red Blood Cells Perc 0.0 % (0.0-0.2); Platelet Count Result 220 k/mm3 (150-375); Red Blood Count 4.24 M/mm3 (4.2-5.4); White Blood Count 4.9 K/mm3 (4.5-10.0)
[2025-05-10 08:53] LABS: Alanine Aminotransferase 367 U/L (6-35); Albumin Level 4.0 g/dL (3.5-5.1); Alkaline Phosphatase 182 U/L (38-126); Anion Gap 7 mmol/L (4-12); Aspartate Amino Transferase 197 U/L (14-36); Bilirubin,Total 1.4 mg/dL (0.2-1.3); Blood Urea Nitrogen 9 mg/dL (7-17); Calcium 9.3 mg/dL (8.4-10.2); Carbon Dioxide 24 mmol/L (22-30); Chloride 104 mmol/L (98-107); Estimated CRCL calculation 93 ml/min; Estimated Glomerular Filt Rate > 60; Glucose 80 mg/dL (65-110); Potassium 3.8 mmol/L (3.4-5.0); Sodium 135 mmol/L (137-145); Total Protein 7.2 g/dL (6.3-8.2)
--- NOTE | 2025-05-10 10:56 | P.PNGS_ITS ---
Progress Note: A&P Assessment and Plan (1) Acute cholecystitis: Code(s): K81.0 - Acute cholecystitis Status: Acute Assessment and Plan: * Plan to proceed with laparoscopic cholecystectomy today, possible intraop erative cholangiogram by Dr. Burnham. Discussed with the patient her labs in the details of an intraoperative cholangiogram, which may be performed during surgery today. All questions were answered. (2) Transaminitis: Code(s): R74.01 - Elevation of levels of liver transaminase levels Status: Acute Assessment and Plan: * Hepatitis panel negative. AST and ALT trending down appropriately. Total bilirubin up to 1.4, may consider IOC during surgery today. (3) UTI (urinary tract infection): Code(s): N39.0 - Urinary tract infection, site not specified Status: Acute Assessment and Plan: * Continue IV ceftriaxone. Urine culture pending. (4) Mother currently breast-feeding: Code(s): Z39.1 - Encounter for care and examination of lactating mother Status: Acute Plan I have discussed the patient's case and plan of care with Dr. Burnham. Subjective Subjective Date/Time Seen: 05/10/25 10:56 Patient reports: no new complaints Interval history: Patient's pain has improved. LFTs are coming down, but to the bilirubin has gone up to 1.4. Patient has been added onto the surgery schedule this afternoon and still wishes to proceed. Exam GI: Inspection: non-distended GI Palp: Yes Soft to palpation, Yes Tenderness to palpation present (GI) (Right upper quadrant) and No Guarding due to palpation present (GI) Auscultation: normal bowel sounds Objective Data Vital Signs Vital Signs: Vital Signs - 24 hr 05/09/25 14:00 05/09/25 15:04 05/09/25 20:20 Temperature 96.2 F L 97.2 F L Pulse Rate 60 76 Respiratory Rate 16 18 Blood Pressure 96/47 L 132/75 Pulse Oximetry 100 97 100 Oxygen Delivery Room Air Fraction of Inspired Oxygen 05/09/25 23:37 05/10/25 05:00 Temperature 97.3 F L Pulse Rate 100 48 L Respiratory Rate 20 16 Blood Pressure 108/51 L Pulse Oximetry 97 100 Oxygen Delivery Room Air Fraction of Inspired Oxygen 21 Intake/Output Intake/Output: Intake & Output 05/07/25 05/08/25 05/09/2525 23:59 23:59 23:59 23:59 Intake Total 1290 1718 Balance 1290 1718 Meds/Results Medications: Active Medications Generic Name Dose Route Start Last Admin Trade Name Freq PRN Reason Stop Dose Admin Lactated Ringer's 1,000 mls @ 125 mls/hr 05/09/25 02:25 05/10/25 03:35 Lr - Lactated Ringers Iv IV CONT 125 mls/hr .Q8H VANCE Administration Ceftriaxone Sodium 1 gm/ 50 mls @ 100 mls/hr 05/10/25 01:00 05/10/25 00:39 Sodium Chloride IVPB Infused Q24H VANCE Infusion Morphine Sulfate 2 mg 05/09/25 02:24 05/09/25 10:40 Morphine Sulfate (*Crx) 2 Mg/Ml Inj IV PUSH 2 mg Q2H PRN Administration Pain Rated 7-10 Ondansetron HCl 4 mg 05/09/25 02:24 05/09/25 10:40 Ondansetron Inj 4 Mg/2 Ml Vial IV PUSH 4 mg Q4H PRN Administration Nausea Radiology Results: ITS Impressions Chest X-Ray 05/09/25 05:52 Impression: Normal chest. Chest/Abdomen/Pelvis CTA 05/09/25 06:01 IMPRESSION: 1. Findings compatible with acute cholecystitis. Clinically correlate. 2: No acute cardiopulmonary disease. No evidence for pulmonary embolism. Abdomen Ultrasound 05/09/25 09:30 IMPRESSION: 1: Cholelithiasis with gallbladder wall thickening. Consider cholecystitis in the appropriate clinical setting. Labs Labs: Laboratory Results - last 24 hr 05/09/25 05/10/25 12:07 08:15 WBC 4.9 RBC 4.24 Hgb 13.0 Hct 38.3 MCV 90.3 MCH 30.7 MCHC 33.9 RDW 12.3 Plt Count 220 MPV 9.2 Immature Gran % (Auto) 0.2 Neut % (Auto) 43.6 L Lymph % (Auto) 41.8 [place] % (Auto) 7.3 Eos % (Auto) 6.7 H Baso % (Auto) 0.4 Lymph # (Auto) 2.05 [place] # (Auto) 0.4 Eos # (Auto) 0.3 Baso # (Auto) 0.0 Abs Immat Gran (auto) 0.01 Absolute Neuts (auto) 2.1 Absolute Nucleated RBC 0.000 Nucleated RBC % 0.0 Sodium 135 L Potassium 3.8 Chloride 104 Carbon Dioxide 24 Anion Gap 7 BUN 9 Creatinine 0.72 Estim Creat Clear Calc 93 Estimated GFR > 60 Glucose 80 Calcium 9.3 Total Bilirubin 1.4 H AST 197 H ALT 367 H Alkaline Phosphatase 182 H Total Protein 7.2 Albumin 4.0 Hepatitis A IgM Ab Negative Hep Bs Antigen Negative Hep B Core IgM Ab Negative Hepatitis C Ab Screen Negative
--- NOTE | 2025-05-10 15:18 | WPDANESEPPF ---
Anes - Initial Pre Proc Eval Procedure: Operation Date: 05/10/25 15:30 Proposed Procedures p Laparoscopic Cholecystectomy - Yobany Burnham MD Date/Time: 05/10/25 15:18 Surgeon: Yobany Burnham MD Pre Op Diagnosis: Acute tejal; UTI; Transaminitis Patient Data Age: 29 Gender: F Height: 1.57 m Weight: 75.9 kg Last Vital Signs Temp 35.7 C L 05/10/25 14:00 Pulse 53 L 05/10/25 14:00 Resp 17 05/10/25 14:00 BP 128/65 05/10/25 14:00 Pulse Ox 100 05/10/25 14:00 O2 Del Method Room Air 05/09/25 23:37 FiO2 21 05/09/25 23:37 Allergies Allergy/AdvReac Type Severity Reaction Status Date / Time grass pollen Allergy Hives Verified 05/10/25 15:34 red meat AdvReac Gastrointestinal Uncoded 05/10/25 15:34 Upset Home Medications ?Medication ?Instructions ?Recorded ?Confirmed ?Type vits no.133-ferrous 1 tablet PO DAILY 02/08/25 05/09/25 History fumarate 28 mg-folic acid 800 mcg tablet () Laboratory Tests 05/10/25 08:15 WBC 4.9 K/mm3 (4.5-10.0) RBC 4.24 M/mm3 (4.2-5.4) Hgb 13.0 g/dL (12.0-15.0) Hct 38.3 % (37.0-47.0) MCV 90.3 fl (80-100) MCH 30.7 pg (26-34) MCHC 33.9 g/dl (32-36) RDW 12.3 % (11.5-14.5) Plt Count 220 k/mm3 (150-375) MPV 9.2 fl (7.4-10.4) Immature Gran % (Auto) 0.2 % (0-0.5) Neut % (Auto) 43.6 L % (45.5-73.1) Lymph % (Auto) 41.8 % (18.3-44.2) [place] % (Auto) 7.3 % (2.6-8.5) Eos % (Auto) 6.7 H % (0-4.4) Baso % (Auto) 0.4 % (0.2-1.2) Lymph # (Auto) 2.05 K/mm3 (0.9-3.2) [place] # (Auto) 0.4 K/mm3 (0.1-0.6) Eos # (Auto) 0.3 K/mm3 (0-0.3) Baso # (Auto) 0.0 K/mm3 (0.0-0.1) Abs Immat Gran (auto) 0.01 K/mm3 (0.00-0.031) Absolute Neuts (auto) 2.1 K/mm3 (1.3-6.7) Absolute Nucleated RBC 0.000 K/mm3 (0.0-0.012) Nucleated RBC % 0.0 % (0.0-0.2) Sodium 135 L mmol/L (137-145) Potassium 3.8 mmol/L (3.4-5.0) Chloride 104 mmol/L (98-107) Carbon Dioxide 24 mmol/L (22-30) Anion Gap 7 mmol/L (4-12) BUN 9 mg/dL (7-17) Creatinine 0.72 mg/dL (0.7-1.0) Estim Creat Clear Calc 93 ml/min Estimated GFR > 60 (59 - ) Glucose 80 mg/dL (65-110) Calcium 9.3 mg/dL (8.4-10.2) Total Bilirubin 1.4 H mg/dL (0.2-1.3) AST 197 H U/L (14-36) ALT 367 H U/L (6-35) Alkaline Phosphatase 182 H U/L (38-126) Total Protein 7.2 g/dL (6.3-8.2) Albumin 4.0 g/dL (3.5-5.1) Patient hx anesthesia problems: none Family hx anesthesia problems: none Results Review: All pre-operative results and documents have been reviewed as part of the pre-operative evaluation. FOR[facility]LY [facility] Past Medical History Medical History (Updated 05/10/25 @ 15:18 by Joseph Kennedy DO) PTSD (post-traumatic stress disorder) Asthma Spontaneous vaginal delivery x2 Preeclampsia x2 Depression Anxiety Toxic shock syndrome (~2005) complicated by sepsis, while in [employer] Surgical History Surgical History No pertinent past surgical history Family History Family History Sibling Autoimmune disease Anxiety Depression Sibling Anxiety Depression Sibling Depression Mother Bipolar 1 disorder Anxiety Manic depression Grandparent Diabetes mellitus Social History Social History Smoking status: Never smoker Alcohol intake: never Substance use: former Substance use type: marijuana Last use: quit as soon as found out was Do You Feel Safe in your Home?: Yes Lack of Transportation: No Lack of Food: Never True Current Housing: I Have Housing Concerned About Future Housing: No Difficulty Paying Gas/Electric Bills: No Difficulty Paying for Meds: No Currently Unemployed: No Education: Bachelor's Degree Difficulty w/ Childcare or Family Care: No Spiritual care concerns: No Anes - Eval Final PreProcedure Day of Procedure 05/10/25 15:18 Patient weight: obese Heart: regular rate and rhythm Lungs: clear to auscultation Airway: Mallampati scale class II Neurological: alert and oriented Last oral intake: >/= 8 hours ASA classification: II Emergent: no Anesthetic plan: proceed Anesthesia type and monitoring: general ETT and standard monitoring Results Review: All pre-operative results and documents have been reviewed as part of the pre-operative evaluation. Informed Consent: The patient's anesthetic plan and its attendant risks and benefits were discussed with the patient/family/POA. Questions were solicited and answers provided to the satisfaction of the patient/family/POA.
[2025-05-10] MEDS: LACTATED RINGERS 1,000 ML 30 ML IV CONT ×2 (15:20→16:50)
--- NOTE | 2025-05-10 15:21 | WPDHPUPDATE1 ---
History and Physical Update Update Date/Time: 05/10/25 15:21 History and Physical has been reviewed, including an updated exam of the patient. There are NO changes in the patient's condition. Risks, benefits, and alternatives have been discussed and questions answered. Patient agrees to proceed with procedure. Liver enzymes are decreasing. Proceed with laparoscopic cholecystectomy, possible intraoperative cholangiogram today.
[2025-05-10] MEDS: ACETAMINOPHEN 500 MG TABLET 1000 MG PO (15:28)
[2025-05-10] MEDS: KETOROLAC 15 MG/ML VIAL (*BKC) IV PUSH (15:28)
[2025-05-10] MEDS: LIDO 1%/EPINEPHRINE 1:100,000 20 ML VIAL 30 ML INFILTRATE (16:11)
--- NOTE | 2025-05-10 16:13 | S_PTH ---
PATIENT: Janeen Pearl LOC: [id number] U#:[id number] AGE/SX: 29/F ROOM: 327 RE05/09/[address]: Yobany Burnham MD : 1995 BED: 01 DIS: 05/11/2025 SPEC #: [id number] RECD: 05/11/25 09:06 STATUS: MARIA GUADALUPE REQ #: [id number] TROY: 05/10/25 16:[address]: Yobany Burnham DEPT: [facility] Surgical RECD BY: Zoraida Melendez ENTERED: 05/11/25 09:07 SP TYPE: Surgical OTHR DR: Floyd Martins MD ENGINE BUILDUP MECHANIC PHYSICIAN Tissues: A - Gallbladder Procedures: Hematoxylin and Eosin Stain Gross and Microscopic Level 3
[2025-05-10] MEDS: fentaNYL CITRATE INJ (*CRX) 100 MCG/2 ML VIAL 25 MCG IV PUSH ×6 (17:00→17:20)
--- NOTE | 2025-05-10 17:40 | W.PM.PROC2 ---
Procedure Note - Detailed Date of Procedure 05/10/25 Pre-op Diagnosis Acute tejal; UTI; Transaminitis Post-op Diagnosis Same Procedure Performed Laparoscopic cholecystectomy Surgeon Yobany Burnham MD Produce Department Supervisor Isac Maya SA Anesthesia General Indications Patient is a 29-year-old female who is 2 weeks . She was having severe right upper quadrant abdominal pain and nausea. Normal white blood cell count but had an elevated AST and ALT with transaminitis. Abdominal ultrasound showed some mild gallbladder wall thickening with gallstones noted. AST and ALT have decreased over the last 2 days and the patient still has some mild right upper quadrant pain. She likely has some mild acute cholecystitis due to her gallstones. She presents now for a laparoscopic cholecystectomy. Findings The gallbladder was distended and had and some mild edema of the gallbladder wall. No adhesions of the duodenum, omentum, or stomach were noted to the gallbladder. The gallbladder was removed laparoscopically without difficulty. Upon palpation there are multiple small gallstones within the gallbladder. The gallbladder gallstones were sent to pathology. Description of Procedure After informed consent was obtained patient brought to the operating room she was placed supine position and general endotracheal anesthesia was administered. The abdomen was then prepped and draped usual sterile fashion. A time-out was then performed correctly identifying the patient as well as procedure to be performed. She was already on scheduled IV antibiotics. I started the procedure by entering the abdomen left upper quadrant utilizing a 5mm Optiview port. Once inside the abdomen insufflated to adequate pneumoperitoneum of 15mm CO2. I then placed additional trocar ports to include a 5mm periumbilical trocar port as well as to right lateral subcostal 5mm trocar ports and a 12mm epigastric trocar port all under direct visualization. Looking into the upper portions of the abdomen I could see the gallbladder was distended and had some very mild gallbladder wall edema. There were no adhesions of the omentum, duodenum, or stomach to the gallbladder. The gallbladder was then held at the dome with a laparoscopic grasper and the gallbladder was elevated over the right half liver towards the right shoulder. A 2nd grasper was used to hold the gallbladder at the infundibulum. I then proceeded to strip down the visceral peritoneum off of the infundibular gallbladder to identify the cystic duct. The cystic duct was then dissected out circumferentially. Cystic artery was identified and dissected out circumferentially as well. The posterior wall the gallbladder at the infundibulum dissected free of the liver in the lower 3rd until I could obtain the critical view of safety. There were 2 and only 2 structures going into the gallbladder. I then placed 2 clips proximally cystic duct and 2 clips distally high on infundibular gallbladder. The cystic duct was divided Endo Art. In a similar fashion cystic artery was clipped and divided as well. The gallbladder was then resected off the liver utilized electrocautery without spilling any gallstones or any bile. Once the gallbladder completely freed from liver is placed into an Endo-Catch bag and brought out through the epigastric port site. The gallbladder is contents to include small gallstones were sent to pathology for examination. I then irrigated out the right upper quadrant the abdomen gallbladder fossa copious amounts sterile saline solution. Hemostasis was excellent. There is no evidence of bile leak. I then aspirated the fluid from the right upper quadrant the abdomen from the pelvis. I then removed all the trocar ports under direct visualization all port sites appeared hemostatic. The abdomen was allowed to decompress. All the port sites of the irrigated sterile saline solution hemostasis was good. I then closed the 12mm epigastric trocar port fascial defect utilizing a 0 Vicryl suture at the fascial level. The skin edges on the port sites were then approximated utilizing a running subcuticular 4-0 Monocryl suture. The incisions were then cleaned the skin glue was applied. The patient tolerated the procedure well no complications. All sponges, needles, and instrument counts were correct at the end procedure. EBL was _25__cc. The patient was awakened and taken to recovery in stable and satisfactory condition. Implants None Estimated Blood Loss 25 Drains No Packing No Pathology Yes (Gallbladder and gallstones to pathology) Complications No immediate complications Condition Stable Disposition PACU [facility] Billing Surgery - Charge Forward: Surgery Billing
[2025-05-10] MEDS: oxyCODONE HCL (*CRX) 5 MG TAB IR PO (18:14)
[2025-05-10] MEDS: LACTATED RINGERS 1,000 ML 90 ML IV CONT (20:18)
[2025-05-10] MEDS: HYDROcodone/acetaminophen (*CRX) 5-325 MG TABLET 1 TAB PO (22:22)
[2025-05-11 00:58] VITALS: BP 122/71; PULSE 51; RESP 20; TEMP 35.8; O2SAT 99
[2025-05-11] MEDS: LACTATED RINGERS 1,000 ML 90 ML IV CONT (04:30)
[2025-05-11] MEDS: HYDROcodone/acetaminophen (*CRX) 5-325 MG TABLET 1 TAB PO ×2 (04:34→08:41)
[2025-05-11 04:35] VITALS: BP 152/69; PULSE 51; RESP 20; TEMP 35.6; O2SAT 100
[2025-05-11 06:49] LABS: Hematocrit 37.3 % (37.0-47.0); Hemoglobin 12.0 g/dL (12.0-15.0); Immature Granulocyte Percent A 0.0 % (0-0.5); Lymphocytes Absolute Auto 2.34 K/mm3 (0.9-3.2); Mean Corpuscular HGB Conc 32.2 g/dl (32-36); Mean Corpuscular Hemoglobin 30.3 pg (26-34); Mean Corpuscular Volume 94.2 fl (80-100); Nucleated Red Blood Cells Absolute Auto 0.000 K/mm3 (0.0-0.012); Nucleated Red Blood Cells Perc 0.0 % (0.0-0.2); Platelet Count Result 207 k/mm3 (150-375); Red Blood Count 3.96 M/mm3 (4.2-5.4); White Blood Count 5.2 K/mm3 (4.5-10.0)
[2025-05-11 07:29] LABS: Alanine Aminotransferase 245 U/L (6-35); Albumin Level 3.5 g/dL (3.5-5.1); Alkaline Phosphatase 142 U/L (38-126); Anion Gap 6 mmol/L (4-12); Aspartate Amino Transferase 96 U/L (14-36); Bilirubin,Total 0.8 mg/dL (0.2-1.3); Blood Urea Nitrogen 7 mg/dL (7-17); Calcium 9.0 mg/dL (8.4-10.2); Carbon Dioxide 27 mmol/L (22-30); Chloride 104 mmol/L (98-107); Estimated CRCL calculation 96 ml/min; Estimated Glomerular Filt Rate > 60; Glucose 73 mg/dL (65-110); Potassium 3.7 mmol/L (3.4-5.0); Sodium 137 mmol/L (137-145); Total Protein 6.4 g/dL (6.3-8.2)
[2025-05-11] MEDS: MULTIVIT/MIN/PREN/FOL AC/IRON TABLET 1 TAB PO (08:34)
[2025-05-11] MEDS: PANTOPRAZOLE 40 MG TABLET PO (08:34)
--- NOTE | 2025-05-11 09:06 | P.PNAN_ITS ---
Anes - Prog Note Post-Op Date/Time: 05/11/25 09:06 Cardiovascular status: normal Respiratory status: normal Airway patency: baseline Mental status: baseline Post-Op hydration status: normal Vital Signs: Last Vital Signs Temp 35.6 C L 05/11/25 04:35 Pulse 51 L 05/11/25 04:35 Resp 20 05/11/25 04:35 BP 152/69 H 05/11/25 04:35 Pulse Ox 100 05/11/25 04:35 O2 Del Method Room Air 05/10/25 17:20 O2 Flow Rate 8 05/10/25 17:05 FiO2 21 05/09/25 23:37 Pain Score (VAS): 0 I/O: Intake & Output 05/10/25 05/11/25 05/11/25 23:59 07:59 15:59 Intake Total 350 1336 Balance 350 1336 Laboratory Tests 05/11/25 06:05 05/11/25 06:05 05/11/25 06:05 WBC 5.2 RBC 3.96 L Hgb 12.0 Hct 37.3 MCV 94.2 MCH 30.3 MCHC 32.2 RDW 12.1 Plt Count 207 MPV 9.6 Immature Gran % (Auto) 0.0 Neut % (Auto) 41.2 L Lymph % (Auto) 44.7 H [place] % (Auto) 9.5 H Eos % (Auto) 4.0 Baso % (Auto) 0.6 Lymph # (Auto) 2.34 [place] # (Auto) 0.5 Eos # (Auto) 0.2 Baso # (Auto) 0.0 Abs Immat Gran (auto) 0.00 Absolute Neuts (auto) 2.2 Absolute Nucleated RBC 0.000 Nucleated RBC % 0.0 Sodium 137 Potassium 3.7 Chloride 104 Carbon Dioxide 27 Anion Gap 6 BUN 7 Creatinine 0.70 Estim Creat Clear Calc 96 Estimated GFR > 60 Glucose 73 Calcium 9.0 Total Bilirubin 0.8 AST 96 H ALT 245 H Alkaline Phosphatase 142 H Total Protein 6.4 Albumin 3.5 Microbiology 05/08/25 23:39 Unspecified Urine - Preliminary Gram negative bacilli isolated Post-procedural complaints: none Patient Feedback: Patient satisfied with anesthetic care.
--- NOTE | 2025-05-11 09:48 | P.DS_ITS ---
DS: Admitting Diagnosis Discharge Date 05/11/2025 Admitting Diagnosis acute cholecystitis transaminitis UTI in period breast-feeding mother DS: Discharge Diagnosis Discharge Diagnosis (1) Acute cholecystitis: Code(s): K81.0 - Acute cholecystitis Status: Acute (2) Transaminitis: Code(s): R74.01 - Elevation of levels of liver transaminase levels Status: Acute (3) UTI (urinary tract infection): Code(s): N39.0 - Urinary tract infection, site not specified Status: Acute (4) Mother currently breast-feeding: Code(s): Z39.1 - Encounter for care and examination of lactating mother Status: Acute DS: Summary Hospital Course Reason for hospitalization: This is a 29-year-old who presented to the ED with complaints of right upper quadrant abdominal pain x 7 hours. Workup in the ED showed elevated liver enzymes and CTA chest, abdomen, and pelvis showed findings compatible with acute cholecystitis. No PE or acute cardiopulmonary disease. Right upper quadrant abdominal ultrasound showed cholelithiasis with gallbladder wall thickening. She was admitted in the setting for treatment and further surgical evaluation. Hospital Course: UA also suggestive of UTI. She is asymptomatic, but was started on ceftriaxone IV. Urine culture growing Gram-negative bacilli in the preliminary culture. Discussed with ID pharmacist and converted her to Augmentin for a total of 7 days of antibiotics. Given her significant elevation of AST and ALT, hepatitis panel also ordered and negative. Decision was made to proceed with surgery. She underwent laparoscopic cholecystectomy on 05/10/[address] Martin and was straight forward. Labs were monitored daily. Her diet was slowly advanced postoperatively to a low-fat diet, which she is tolerating this morning. She is tolerating activity. She has minimal incisional soreness this morning. No acute issues and patient is stable for discharge today. Status at Discharge Functional status at discharge: independent ambulation Overall status at discharge: patient is progressing back to baseline Time Spent with Patient Time attestation: Total time spent providing and/or coordinating discharge services: Time spent: Less than 30 minutes Exam Const: General: comfortable and no acute distress Resp: Effort & Inspection: normal respiratory effort Auscultation: clear to auscultation bilaterally Cardio: Rate: regular rate Rhythm: regular rhythm GI: Inspection: non-distended and incision (incisions dry and intact) GI Palp: Yes Soft to palpation, Yes Tenderness to palpation present (GI) (incisional) and No Guarding due to palpation present (GI) Auscultation: normal bowel sounds Neuro: General: moves all extremities and no focal motor deficits Extrem: General: no calf tenderness and no edema Psych: Mental Status: mental status grossly normal Insight: Good insight present (Psych) DS: Data Data Completed and Pending Pending studies at discharge: Pending at discharge 05/10/25 16:13 Surgical [PTH] Routine Labs on day of discharge: Labs from last 24 hours 05/11/25 06:05 WBC 5.2 RBC 3.96 L Hgb 12.0 Hct 37.3 MCV 94.2 MCH 30.3 MCHC 32.2 RDW 12.1 Plt Count 207 MPV 9.6 Immature Gran % (Auto) 0.0 Neut % (Auto) 41.2 L Lymph % (Auto) 44.7 H [place] % (Auto) 9.5 H Eos % (Auto) 4.0 Baso % (Auto) 0.6 Lymph # (Auto) 2.34 [place] # (Auto) 0.5 Eos # (Auto) 0.2 Baso # (Auto) 0.0 Abs Immat Gran (auto) 0.00 Absolute Neuts (auto) 2.2 Absolute Nucleated RBC 0.000 Nucleated RBC % 0.0 Sodium 137 Potassium 3.7 Chloride 104 Carbon Dioxide 27 Anion Gap 6 BUN 7 Creatinine 0.70 Estim Creat Clear Calc 96 Estimated GFR > 60 Glucose 73 Calcium 9.0 Total Bilirubin 0.8 AST 96 H ALT 245 H Alkaline Phosphatase 142 H Total Protein 6.4 Albumin 3.5 Preliminary micro results at discharge 05/08/25 23:39 - Preliminary Unspecified Urine Gram negative bacilli isolated Procedures/Treatments: Procedures Operation Date: 05/10/25 15:30 Actual Procedure Side Surgeon p Laparoscopic Cholecystectomy Not Applicable Yobany Martin MD Imaging Radiologist's impression: ITS Impressions Chest X-Ray 05/09/25 05:52 Impression: Normal chest. Chest/Abdomen/Pelvis CTA 05/09/25 06:01 IMPRESSION: 1. Findings compatible with acute cholecystitis. Clinically correlate. 2: No acute cardiopulmonary disease. No evidence for pulmonary embolism. Abdomen Ultrasound 05/09/25 09:30 IMPRESSION: 1: Cholelithiasis with gallbladder wall thickening. Consider cholecystitis in the appropriate clinical setting. Discharge Plan Discharge Attending physician on discharge: Yobany Martin Consulting providers: Floyd Martins Discharging Clinician: Bri Sheriff Anticipated Discharge Date/Time: 05/11/25 09:57 Patient Disposition: Home Activity: may shower, no driving and other - see discharge instructions Diet: low fat Wound Care Instructions: incision open to air Discharge Instructions: DISCHARGE INSTRUCTION SHEET FOR HERNIA, GALLBLADDER AND APPENDIX SURGERIES DR. MARTIN 1. May shower in 24 hours, no soaking in bath x 2weeks. 2. Call office for: * Wound increasingly painful or bleeding * Vomiting * Fever of greater than 101 degrees 3. If no bowel movement for three days, take 1 oz. (30 ml) Milk of Magnesia or MiraLax 17g 1 to 2 times daily. 4. No heavy lifting > 10-15 pounds x 2 weeks for laparoscopic cholecystectomy or appendectomy. 5. No driving for 3 days or while taking narcotic pain medications. 6. Ice to surgical site for 48 hours (30 min on, then 30 min off). 7. Up walking 10-30 minutes three times per day. 8. Resume previous home medications. 9. Call to schedule a follow-up appointment with Dr. Martin in 2 weeks. [phone]) 10. Oral pain medications prescription to be sent to pharmacy. Take Tylenol 500mg every 6 hours and Ibuprofen 600mg every 6 hours for the first 2 days, then as needed. 11. Gallbladders-Low Fat Diet for 2 weeks Patient Instructions: Antibiotic Form, Low Fat Diet (DC), Opioid Safety (DC) Patient Language: Kazakh Stand Alone Forms: General Discharge Information Follow-up/Referrals: Yobany Martin MD [Physician] - 2 Weeks Discharge Medications: New amoxicillin-pot clavulanate 875-125 mg tablet 1 tablet PO Q12H Qty: 10 0RF hydrocodone-acetaminophen 5-325 mg Tablet 1 tablet PO Q6H PRN (Reason: Pain Rated 4-6) Qty: 10 0RF Continued 28-800 mg-mcg tablet 1 tablet PO DAILY Date of admission: 05/09/25 02:24 Primary Care Provider: PHYSICIAN,MIRROR FINISHING MACHINE OPERATOR Admitting Provider: Yobany Martin Attending physician on admission: Yobany Martin Condition: Stable Quality VTE Prophylaxis VTE prophylaxis: mechanical ordered
== END 2025-05-11 11:00 | disposition home or self-care (01) ==
LOC: ANHED 05-09 02:24 → ANH3MEDSUR 05-09 02:38
PROVIDERS: Nurse Practitioner Family; Admitting Provider Surgery; Emergency Provider Student in an Organized Health Care Education/Training Program; Visit Provider Surgery
PROC: 0FT44ZZ Resection of Gallbladder, Percutaneous Endoscopic Approach (ICD-10-PCS; CPT 47562; principal; 2025-05-10 15:30)
DX: K80.00 Calculus of gallbladder with acute cholecystitis without obstruction (principal); O99.893 Other specified diseases and conditions complicating puerperium; R74.01 Elevation of levels of liver transaminase levels; N39.0 Urinary tract infection, site not specified; F41.8 Other specified anxiety disorders
CPT/HCPCS: 47562; 36415; 71045; 71275; 74177; 76705; 80053; 80074; 81001; 81025; 83690; 83735; 83880; 85025; 85380; 85610; 85730; 86850; 86900; 86901; 87086; 88304; 96361; 96365; 96374; 96375; 99285; A9270; G0378; J0696; J1885; J2003; J2004; J2250; J2270; J2405; J2704; J3010; J7120; Q9967